=== PATIENT | male | born 1940 | race Caucasian/White ===

== ENCOUNTER 2017-04-01 08:18 | Emergency (ER) | payer MEDICARE ==
[2017-04-01 08:35] VITALS: BP 156/77
--- NOTE | 2017-04-01 08:41 | UC ---
Respiratory Complaint HPI - HPI Summary HPI Summary: 3 weeks of worsening cough, began with nasal congestion now is needing to sleep sitting up because of cough, no fevers, cardiac and asthma history ---His rescue inhaler is not working - History of Current Complaint Chief Complaint: UCRespiratory Stated Complaint: COUGH Time Seen by Provider: 04/01/17 08:33 Hx Obtained From: Patient Onset/Duration: Gradual Onset, Lasting Weeks - 3, Worse Since - -past several days Timing: Constant Severity Initially: Mild Severity Currently: Moderate Pain Intensity: 3 Pain Scale Used: 0-10 Numeric Character: Cough: Productive Aggravating Factors: Allergens, Exertion, Deep Breaths, Recumbent Position Alleviating Factors: Nothing Associated Signs And Symptoms: Positive: URI, Nasal Congestion, Sinus Discomfort - Allergies/Home Medications Allergies/Adverse Reactions: Allergies Allergy/AdvReac Type Severity Reaction Status Date / Time No Known Allergies Allergy Verified 04/01/17 08:24 PMH/Surg Hx/FS Hx/Imm Hx Previously Healthy: No Endocrine History: Dyslipidemia Cardiovascular History: Cardiac Disease, Hypertension Respiratory History: Asthma GI/ History: Gastroesophageal Reflux - Surgical History Surgical History: None - Social History Occupation: Retired Lives: With Family Alcohol Use: None Substance Use Type: None Smoking Status (MU): Former Smoker When Did the Patient Quit Smoking/Using Tobacco: 1968 Review of Systems Constitutional: Negative Skin: Negative Eyes: Negative ENT: Nasal Discharge, Sinus Congestion Respiratory: Cough Cardiovascular: Negative Gastrointestinal: Negative Genitourinary: Negative Motor: Negative Neurovascular: Negative Musculoskeletal: Negative Neurological: Negative Psychological: Negative Is Patient Immunocompromised?: No All Other Systems Reviewed And Are Negative: Yes Physical Exam Triage Information Reviewed: Yes Appearance: No Pain Distress, Well-Nourished, Ill-Appearing - mild Vital Signs: Initial Vital Signs Temp 98.6 F 04/01/17 08:26 Pulse 79 04/01/17 08:26 Resp 18 04/01/17 08:26 BP 156/77 04/01/17 08:26 Pulse Ox 98 04/01/17 08:26 Vital Signs Reviewed: Yes Eye Exam: Normal Eyes: Positive: Conjunctiva Clear ENT Exam: Normal ENT: Positive: Normal ENT inspection, Hearing grossly normal, Pharynx normal, Nasal congestion, Nasal drainage. Negative: TMs normal, Tonsillar exudate, Trismus, Muffled/hoarse voice Dental Exam: Normal Neck exam: Normal Neck: Positive: Supple, Nontender Respiratory Exam: Normal Respiratory: Positive: Chest non-tender, Lungs clear, Normal breath sounds, No respiratory distress, No accessory muscle use Cardiovascular Exam: Normal Cardiovascular: Positive: RRR, No Murmur, Pulses Normal, Brisk Capillary Refill Musculoskeletal Exam: Normal Musculoskeletal: Positive: Strength Intact, ROM Intact, No Edema Neurological Exam: Normal Neurological: Positive: Alert, Muscle Tone Normal Psychological Exam: Normal Skin Exam: Normal UC Diagnostic Evaluation - Laboratory O2 Sat by Pulse Oximetry: 98 Respiratory Course/Dx - Course Course Of Treatment: Gjama3uhs fluids, tessalon, albuterol, zithromax, follow blood pressure with pcp - Differential Dx/Diagnosis Differential Diagnosis/HQI/PQRI: Sinusitis Provider Diagnoses: Acute exacerbation of bronchospasm, Sinusitis Discharge - Discharge Plan Condition: Stable Disposition: HOME Prescriptions: Albuterol HFA INHALER* [Ventolin HFA Inhaler*] 2 puff INH Q4H PRN #1 mdi PRN Reason: cough Azithromycin TAB* [Zithromax TAB (Z-JARRET) 250 mg #6 tabs] 2 tab PO .TODAY, THEN 1 DAILY #1 jarret Benzonatate CAP* [Tessalon 100 MG CAP*] 100 mg PO TID PRN #40 cap PRN Reason: Cough Patient Education Materials: Rhinosinusitis (ED), Hypertension (ED), How to Use a Metered-Dose Inhaler and a Spacer (ED), Acute Cough (ED) Referrals: Paul Zavala MD [Primary Care Provider] - 2 Weeks
== END 2017-04-01 09:06 | disposition home or self-care (01) ==
LOC: UCCORT 08:18
DX: J98.01 Acute bronchospasm (principal); J01.90 Acute sinusitis, unspecified
CPT/HCPCS: 99212; G0463

== ENCOUNTER 2017-07-03 06:43 | Observation (INO) | payer MEDICARE ==
[2017-07-03] MEDS ORDERED: ceFAZolin VIAL 1 GM in NS *SYRINGE * * 10 ML ONE (08:00)
[2017-07-03] MEDS ORDERED: ceFAZolin 2 GM PREMIX (*) 2 GM/50 ML BAG IVPB ONE (08:00)
[2017-07-03] MEDS ORDERED: Lidocaine 1% INJ* 10 MG/ML 30 ML SDV ONE (08:39)
[2017-07-03] MEDS ORDERED: Midazolam* 1 MG/ML 10 ML VIAL (10 MG) ONE (08:39)
[2017-07-03] MEDS ORDERED: fentaNYL* 50 MCG/ML 2 ML VIAL (100 MCG VIAL) ONE (08:39)
[2017-07-03] MEDS ORDERED: Naloxone* 0.4 MG/ML 1 ML VIAL ONE (09:13)
[2017-07-03] MEDS ORDERED: Flumazenil* 0.1 MG/ML 5 ML MDV ONE (09:13)
[2017-07-03] MEDS ORDERED: Acetaminophen TAB* 325 MG PO PRN (10:08)
[2017-07-03] MEDS ORDERED: oxyCODONE/Acetamin 5/325 MG* TAB PO PRN (10:08)
[2017-07-03] MEDS: NS 0.9% 1000 ML* 1,000 ML IV SCH ×2 (13:28→23:51)
--- NOTE | 2017-07-03 15:24 | RAD ---
Indication: Status post pacemaker placement. Single frontal view of the chest performed at 1340 hours was reviewed. Comparison is made with previous exam dated October 10, 2007. No mediastinal shift is noted. Heart is of normal size and configuration. Pacemaker leads are in place. No pneumothorax is noted. IMPRESSION: NO ACTIVE CARDIOPULMONARY DISEASE IS NOTED.
[2017-07-03] MEDS: ceFAZolin 1 GM VIAL(*) 1 GM in NS 0.9% 50 ML* 50 ML IVPB SCH (17:28)
[2017-07-03] MEDS: Lisinopril TAB* 10 MG PO SCH (20:12)
[2017-07-03] MEDS: amLODIPine TAB* 5 MG PO SCH (20:12)
--- NOTE | 2017-07-04 00:13 | OP ---
CC: Dr. Longo.* DATE OF OPERATION: 04/02/18 - ROOM #446 DATE OF : 40 SURGEON: Ozzy Shepherd MD ANESTHESIA: Local anesthesia with conscious sedation. 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 OPERATIVE PROCEDURE: Dual chamber pacemaker implantation. ESTIMATED BLOOD LOSS: None. COMPLICATIONS: None. INDICATIONS: The patient is a 77-year-old gentleman with a history of tachycardia. The patient has been on beta-troy therapy for quite sometime for control of his tachycardia. Recently, the patient has had progressive bradycardia and fatigue requiring decreasing doses of beta-troy. Recently, the patient had a Holter monitor which showed heart rates down to as low as 32 beats per minute. 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 DESCRIPTION OF PROCEDURE: The patient was brought to the procedure room in a fasting state. Informed consent had been obtained prior to the procedure. All labs have been reviewed. The patient was placed supine on the procedure table. His left deltopectoral area was cleaned and draped in a usual fashion. 1% lidocaine was used for local anesthesia. Under ultrasound guidance, the axillary vein was entered by a modified Seldinger technique and a guidewire was placed. A second guidewire was placed under the same technique. A 3.5 cm incision was made in the pectoral area and blunt dissection was carried down to the pectoral fascia. A pocket was fashioned for the pacemaker. Over the first guidewire, an 8-Dominican sheath introducer was placed through which a right ventricular lead was advanced to the RV apex. The lead is a [employer] Model [id number], serial number [id number]. The ventricular lead had an R-wave sensitivity of 11, impendence 644 ohms, threshold 0.8 volts at 0.4 msec. The ventricular lead was then sutured to the pectoral fascia using 0-silk. Over the second guidewire, an 8-Dominican sheath introducer was placed through which a right atrial lead was advanced to the high right atrium. The right atrial lead is a [employer] model [id number], serial number [id number]. The atrial lead was then sutured to the pectoral fascia. The atrial lead had a P-wave sensitivity of 3.4, impedance 486 ohms, threshold 0.4 volts at 0.4 msec. The pocket was flushed appropriately. A generator was attached appropriately to the atrioventricular leads. The generator is a [employer] medical model [id number], serial number [id number]. The device was placed into the pocket. The surgical incision was closed in 3 layers. Subcutaneous tissue was closed with 2-0 and 3- 0 absorbable suture. The skin was closed with sameer. The patient was turned to the holding area in stable condition. This is an MRI conditional device. [id number]/[facility] #: [id number] [facility]
[2017-07-04] MEDS: ceFAZolin 1 GM VIAL(*) 1 GM in NS 0.9% 50 ML* 50 ML IVPB SCH ×2 (01:31→08:33)
[2017-07-04] MEDS ORDERED: Omeprazole CAP* 20 MG PO SCH (07:30)
[2017-07-04 08:12] VITALS: BP 155/69
--- NOTE | 2017-07-04 08:23 | RAD ---
INDICATION: Post cardiac pacemaker placement. COMPARISON: July 03, 2017 TECHNIQUE: Dual energy PA and routine lateral views of the chest were obtained. REPORT: Minimal linear atelectasis or pleural parenchymal scarring at the RIGHT lung base without change. The lungs and pleural spaces are otherwise clear. Negative for pneumothorax. Unchanged position of the RIGHT atrial and RIGHT ventricular pacemaker leads. Negative for cardiomegaly. Unremarkable central pulmonary vasculature and mediastinal contours. IMPRESSION: Negative for pneumothorax or pulmonary edema post cardiac pacemaker placement. No evidence for significant acute intrathoracic disease.
[2017-07-04] MEDS: Lisinopril TAB* 10 MG PO SCH (08:33)
[2017-07-04] MEDS: amLODIPine TAB* 5 MG PO SCH (08:33)
[2017-07-04] MEDS ORDERED: Diltiazem CD CAP* 120 MG PO SCH (09:00)
[2017-07-04] MEDS ORDERED: Finasteride TAB* 5 MG PO SCH (09:00)
[2017-07-04] MEDS ORDERED: Metoprolol Succinate XL TAB* 25 MG PO SCH (09:00)
[2017-07-04] MEDS ORDERED: Lisinopril TAB* 10 MG PO SCH (09:01)
[2017-07-04] MEDS ORDERED: Mometasone 220 MCG MDI INH SCH (18:00)
--- NOTE | 2017-07-04 21:05 | DS ---
CC: Dr. Shepherd; Dr. Zavala; Dr. Longo * DISCHARGE SUMMARY: DATE OF ADMISSION: 07/03/17 DATE OF DISCHARGE: 07/04/17 HOSPITAL COURSE: This is a very pleasant 77-year-old gentleman with history of hypertension, sick sinus syndrome, SVT, and MR. He has had progressive problems with tachy-selena syndrome. He was unable to tolerate even low doses of beta blockers without incurring bradycardia. Off beta blockers, he had recurrent SVT. Because of the symptoms, he was referred to Dr. Shepherd who admitted him yesterday for a pacemaker implantation. He underwent successful implantation of a [employer] pacemaker. His chest x-ray today revealed no pneumothorax. His pacemaker interrogation revealed normal function. PHYSICAL EXAMINATION: General: He is a well-developed, well-nourished gentleman, in no apparent distress. Vital Signs: Pulse is 60, blood pressure 155/69. Neck: No significant JVD. Cardiac: S1 and S2 with a 1 to 2/6 holosystolic murmur at the apex. Chest: Clear. Extremities: No edema. LABORATORY DATA: EKG from today revealed A-V sequential pacing with a magnet and a baseline revealed sinus and atrial pacing with occasional PVCs and minor nonspecific ST changes, possible old inferior infarct. IMPRESSION: Mr. Fay appears to be improved after placement of a pacemaker for tachy-selena syndrome. I discussed with him and his the precautions needed to allow his pacemaker to heal and he has questions about exposure to EMF. 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 In addition now that he has pacemaker, we can advance his beta-troy and add diltiazem to better control his supraventricular tachycardia and blood pressure. Therefore, I have recommended following; 1. He is to be discharged today. 2. He will be given pacemaker care instructions. MEDICATIONS: His new medication list will be as follows; 1. Diltiazem CD 120 mg once a day. 2. Lisinopril reduce to 10 mg a day. 3. Flovent inhaler 2 puffs daily. 4. Omeprazole 20 mg a day. 5. Metoprolol succinate 25 mg once a day. 6. He is to discontinue amlodipine and reduce his lisinopril to 10 mg a day from 20 mg a day. TIME SPENT: Greater than 45 plus minutes were spent on discharge and coordination of care. [id number]/[facility] #: [id number] NATHAN
[2017-07-05] MEDS ORDERED: Metoprolol Succinate XL TAB* 25 MG PO SCH (09:00)
== END 2017-07-04 12:00 | disposition home or self-care (01) ==
LOC: CHICATH 06:43 → MEDTELE 10:08 → UNDOADMOB 10:59
PROVIDERS: ADMIT Specialist; ATTEND Specialist
PROC: 02H63JZ Insertion of Pacemaker Lead into Right Atrium, Percutaneous Approach (ICD-10-PCS; 2017-07-03)
PROC: 02HK3JZ Insertion of Pacemaker Lead into Right Ventricle, Percutaneous Approach (ICD-10-PCS; 2017-07-03)
PROC: 0JH606Z Insertion of Pacemaker, Dual Chamber into Chest Subcutaneous Tissue and Fascia, Open Approach (ICD-10-PCS; principal; 2017-07-03 08:00)
DX: I49.5 Sick sinus syndrome (principal); Z86.79 Personal history of other diseases of the circulatory system; Z79.899 Other long term (current) drug therapy
CPT/HCPCS: 71045; 71046; 93005; A9270-GY; G0378; J0690; J2250; J2310; J3010

== ENCOUNTER 2017-09-02 14:12 | Emergency (ER) | payer MEDICARE ==
[2017-09-02 14:40] VITALS: BP 145/71
[2017-09-02] MEDS ORDERED: Tetracaine 0.5% OPTH.SOL 4 ML* 1 DROP BTL LEFT EYE ONE (15:09)
--- NOTE | 2017-09-02 15:17 | UC ---
Eye Complaint HPI - HPI Summary HPI Summary: Pt c/o possible FB i left eye. Pt was stacking wood and wind blew dust and debris in eyes. - History of Current Complaint Chief Complaint: UCEye Stated Complaint: LEFT EYE FB Time Seen by Provider: 09/02/17 15:02 Hx Obtained From: Patient Onset/Duration: Sudden Onset, Lasting Hours Timing: Constant Severity Initially: Mild Severity Currently: Mild Pain Intensity: 2 Character: Foreign Body Sensation Aggravating Factor(s): Blinking Alleviating Factor(s): Nothing - Risk Factors Penetrating Injury Risk Factor: Negative Globe Rupture Risk Factors: Negative Acute Glaucoma Risk Factors: Negative Optic Artery Occlusion Risk Factors: Negative - Allergies/Home Medications Allergies/Adverse Reactions: Allergies Allergy/AdvReac Type Severity Reaction Status Date / Time atorvastatin Allergy Unknown Verified 09/02/17 15:19 Reaction Details PMH/Surg Hx/FS Hx/Imm Hx Previously Healthy: Yes - Surgical History Surgical History: Yes Surgery Procedure, Year, and Place: 2017 - Family History Known Family History: Positive: Cardiac Disease - Social History Occupation: Retired Lives: With Family Alcohol Use: None Substance Use Type: None Smoking Status (MU): Former Smoker Have You Smoked in the Last Year: No When Did the Patient Quit Smoking/Using Tobacco: 1968 Review of Systems Constitutional: Negative Skin: Negative Eyes: Other - FB ENT: Negative Respiratory: Negative Cardiovascular: Negative Gastrointestinal: Negative Genitourinary: Negative Motor: Negative Neurovascular: Negative Musculoskeletal: Negative Neurological: Negative Psychological: Negative Is Patient Immunocompromised?: No All Other Systems Reviewed And Are Negative: Yes Physical Exam Triage Information Reviewed: Yes Appearance: Well-Appearing Vital Signs: Initial Vital Signs Temp 97.7 F 09/02/17 14:35 Pulse 97 09/02/17 14:35 Resp 18 09/02/17 14:35 BP 145/71 09/02/17 14:35 Pulse Ox 98 09/02/17 14:35 Vital Signs Reviewed: Yes Eyes: Positive: Other: - FB left eye at 3 o'clock position, removed Procedures - Procedure Summary Procedure Summary: left eye FB removed with swab, tetracaine eye drop applied first, FB removed and then left eye flushed with 10 cc of NS Eye Complaint Course/Dx - Differential Dx/Diagnosis Differential Diagnosis/HQI/PQRI: Foreign Body Provider Diagnoses: left eye FB. FB removed Left eye Discharge - Discharge Plan Condition: Stable Disposition: HOME Prescriptions: Polymyx/Trimethoprim OPTH* [Polytrim OPHTH*] 2 drop LEFT EYE Q8H #1 btl Patient Education Materials: Eye Foreign Body (ED) Referrals: Paul Zavala MD [Primary Care Provider] -
== END 2017-09-02 15:24 | disposition home or self-care (01) ==
LOC: UCCORT 14:12
DX: T15.92XA Foreign body on external eye, part unspecified, left eye, initial encounter (principal); X58.XXXA Exposure to other specified factors, initial encounter; Y93.9 Activity, unspecified; Y92.9 Unspecified place or not applicable; Z88.8 Allergy status to other drugs, medicaments and biological substances; Z87.891 Personal history of nicotine dependence
CPT/HCPCS: 99212; A9270-GY; G0463

== ENCOUNTER 2018-05-04 09:15 | Emergency (ER) | payer MEDICARE ==
--- OUTSIDE RECORDS SUMMARY | 2018-05-04 09:45 | XMS REPORT ---
:1940 External Reference #:[id number] Author Organization [facility] Address [address] [place] [address] [place] [address] Phone [phone] Care Team Providers Name Role Phone Paul Zavala MD Primary Care Physician Unavailable Payers Type Date Identification Numbers Payment Provider Subscriber Medicare Primary Effective: Policy Number: Medicare Kj Fay 2006 [id number] PayID: [id number] [address] [place] [address] [facility] Part B Policy Number: [id number] [facility] Kj Fay PayID: [id number] [address] [place] [address] Problems Date Description Provider Status Onset: 09/07/2011 Benign essential hypertension Chi Longo M.D. 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 Active Onset: 09/07/2011 Mitral valve disorder Chi Longo M.D. Active Onset: 03/12/2013 Obesity Chi Longo M.D. Active Onset: 05/04/2015 Essential hypertension Chi Longo M.D. Active Family History Date Family Member(s) Problem(s) Comments : (age 88 Mother due to Diabetes iddm, htn, stroke Years) Social History Type Date Description Comments Marital Status Lives With Occupation [employer] Occupation Retired Cigarette Use Former Cigarette Smoker ETOH Use Denies alcohol use Smoking Patient is a former smoker Quit in 1968 Recreational Drug Use Never Used Drugs Daily Caffeine Consumes on average 2 cups of regular coffee per day Exercise Type/Frequency Exercises sporadically Allergies, Adverse Reactions, Alerts Date Description Reaction Status Severity Comments 10/26/2009 Lipitor active Myalgias 10/09/2003 NKDA inactive Medications Medication Date Status Form Strength Qnty SIG Indications Ordering Provider Lisinopril 03/21/ Active Tablets 20mg 30tab 1 by mouth Chi [place] s every day Yanira Longo M.D. Diltiazem CD 07/04/ Active Caps ER 120mg 270ca 2 by mouth Chi 2017 24HR ps in the Kapil Longo, morning and M.D. 1 by mouth in the evening. Pravachol 12/19/ Active Tablets 20mg 90tab 1 tablet by Chi 2015 s mouth every Yanira Longo, day M.D. Finasteride / Active Tablets 5mg 90tab qd po Unknown 0000 s Flovent HFA / Active Aerosol 110mcg/Ac 2 puffs po Unknown 0000 t qday Omeprazole / Active Capsules 20mg 30cap 1 po qd Unknown [address] patricio Acetaminophen 07/10/ Hx Tablets 325mg 2 tablets by Chi 2017 - mouth every Yanira Longo, 08/30/ 6 hours as M.D. 2018 needed for pain/fever Keflex 07/04/ Hx Capsules 500mg 9caps 1 by mouth Ozzy Marlow 2018 - three times Brand, 07/09/ a day for 3 M.D. 2017 days Lisinopril 11/02/ Hx Tablets 10mg 180ta take one Chi 2015 tablet by Yanira Longo, 03/21/ mouth once M.D. 2017 daily (changed 07/04/17) Coq-10 09/29/ Hx Capsules 100mg 60cap 2 tablet Chi 2015 daily Yanira Longo, 12/05/ M.D. 2015 Amlodipine 08/17/ Hx Tablets 2.5mg 180ta 2 tabs in am I10 Chi Besmagdi 2015 and 1 tab in Yanira Longo, 08/06/ pm (adjusted M.D. 2018 to 1 tablet am at discharge). Metoprolol 08/17/ Hx Tablets 25mg 90tab 1/2 tab by Chi Succinate ER 2015 - ER 24HR s mouth odd F. Margotuser, 04/08/ until M.D. [id number] and then discontinue Metoprolol 06/24/ Hx Tablets 25mg 180ta take one Chi Succinate ER 2014 - ER 24HR bs tablet bid F. Sonidor, 08/17/ M.D. 2016 Lisinopril 05/27/ Hx Tablets 5mg 180ta 1 tab by Chi 2014 - bs mouth twice Pino. Qing, 11/02/ a day M.D. 2015 Lisinopril 12/10/ Hx Tablets 5mg 90tab 1 by mouth Chi 2013 - s every day Pino. Sonidor, 05/27/ M.D. 2014 Pravachol 06/28/ Hx Tablets 10mg 45tab 2 tablet by Chi 2012 - s mouth every F. Margotuser, 12/19/ day M.D. 2015 (increased 12/20/15) Simvastatin 05/03/ Hx Tablets 10mg 100ta 1/2 po qhs Chi 2011 - bs On Hold x1 Yanira Longo, 06/28/ M.D. 2013 Crestor 10/02/ Hx Tablets 10mg 30tab 1 pill by Joanna 2011 - s mouth daily Lalo, 10/02/ D.O. 2011 Lisinopril 09/06/ Hx Tablets 10mg 100ta 1 by mouth Chi 2011 - every day Yanira Longo, 12/10/ M.D. 2014 Zocor 10/26/ Hx Tablets 10mg 90tab 1 po hs hold Chi 2009 - s as of Yanira Longo, .3.12 M.D. 2011 Metoprolol 01/14/ Hx Tablets 25mg 30tab 1/2 po qd Chi Tartrate 2008 - s for 1 week Yanira Longo, 03/15/ and then 06/26 M.D. 2008 qod for 1 week and then discontinue. Lopressor 11/13/ Hx Tablets 25mg 30tab 1 po qd Chi 2008 - s Yanira Longo, 01/14/ M.D. 2009 Crestor 05/18/ Hx Tablets 5mg 1 PO qod Chi 2008 - F. Margotuser, M.D. 2010 Crestor 02/19/ Hx Tablets 5mg 1 PO sundaynathan 2008 - and F. Margotuser, M.D. 2007 Niaspan 09/25/ Hx Tablets 500mg 30tab 1Tab PM Chi 2008 - ER s F. Margotuser, M.D. 2007 Aspirin 09/25/ Hx Tablets 325mg 1 PO qd Chi 2007 - F. Mauser, M.D. 2007 Lipitor 08/05/ Hx Tablets 20mg 1 PO hs Chi 2007 - FKapil Longo, M.D. 2007 Atenolol 07/25/ Hx Tablets 25mg 30tab one half PO Chi 2007 - s qd F. Mauser, M.D. 2008 Cardizem CD 07/12/ Hx Caps ER 120mg 100ca 1 by mouth Chi 2007 - 24HR ps every day F. Margotuser, M.D. 2014 Lipitor 05/27/ Hx Tablets 10mg 90tab 1 Tab PO hs Chi 2006 - s F. Margotuser, M.D. 2008 Norvasc 07/27/ Hx Tablets 10mg 90tab 1 po qd Chi 2006 - s F. Margotuser, 11/18/ M.D. 2009 Lipitor 07/13/ Hx Tablets 20mg 30tab 1 po qd Chi 2005 - s F. Mauser, M.D. 2007 Atenolol 10/22/ Hx Tablets 25mg 30tab 1/2 po Chi 2003 - s 07/14/07 F. Mauser, 07/16, and M.D. 07/18 and then discontinue. Norvasc 10/07/ Hx Tablets 7.5mg 30tab 1 po qd Chi 2003 - s F. Mauser, 07/27/ M.D. 2007 Flovent 10/07/ Hx Aerosol 1 puff qd Chi 2003 - F. Qing, M.D. 2010 Albuterol 10/07/ Hx Aerosol prn Chi 2004 - Yanira Longo, 10/26/ M.DKapil 2009 Crestor / Hx Tablets 20mg 1 po qd Unknown - 2009 Amlodipine / Hx 10mg 90uni 1 po qd Chi - ts Yanira Longo, 09/06/ M.D. 2011 Albuterol Mdi / Hx 2 puffs po Unknown - q4hrs prn 2012 Toprol XL / Hx 25mg Unknown - 2015 Coq-10 / Hx 200mg 1 tablet Chi - daily Yanira Longo, 09/29/ M.D. 2015 Proair HFA / Hx Aerosol 108(90Bas Unknown 0000 - e) 05/21/ mcg/Act 2016 Medications Administered in Office Medication Date Status Form Strength Qnty SIG Indications Ordering Provider Technetium TC Administered Injection Yair Ching 99M 016 Evan, Tetrofosmin, FACC Per Unit Dose Up To 40 Millicuries Technetium TC Administered Injection Suki Wilson, 99M 016 PA Tetrofosmin, Per Unit Dose Up To 40 Millicuries Vital Signs Date Vital Result Comment 04/09/2018 Height 68 inches 5'8" Weight 203.00 lb Heart Rate 68 /min BP Systolic Sitting 132 mmHg lue lg cuff BP Diastolic Sitting 62 mmHg lue lg cuff BP Systolic Standing 130 mmHg BP Diastolic Standing 70 mmHg Respiratory Rate 18 /min BMI (Body Mass Index) 30.9 kg/m2 Ejection Fraction 60-65% 03/20/2018 echo 02/26/2018 Height 68 inches 5'8" Weight 202.50 lb w/shoes Heart Rate 66 /min BP Systolic Sitting 158 mmHg Lue reg cuff BP Diastolic Sitting 82 mmHg Lue reg cuff BMI (Body Mass Index) 30.8 kg/m2 Ejection Fraction 53% Nem 07/23/17 12/31/2017 Height 68 inches 5'8" Weight 203.38 lb w/shoes Heart Rate 74 /min BP Systolic Sitting 164 mmHg lue reg cuff BP Diastolic Sitting 82 mmHg lue reg cuff BP Systolic Standing 148 mmHg la repeat sitting BP Diastolic Standing 62 mmHg la repeat sitting BMI (Body Mass Index) 30.9 kg/m2 Ejection Fraction 60-65% echo 06/01/2015 08/30/2017 Height 68 inches 5'8" Weight 201.75 lb Heart Rate 60 /min BP Systolic Sitting 164 mmHg LA, Reg BP Diastolic Sitting 84 mmHg LA, Reg BP Systolic Standing 164 mmHg LA, reg BP Diastolic Standing 82 mmHg LA, reg BMI (Body Mass Index) 30.7 kg/m2 Ejection Fraction 60%-65% 06/01/15 08/06/2017 Height 68 inches 5'8" Weight 200.25 lb with shoes Heart Rate 56 /min BP Systolic 160 mmHg L/Arm Reg Cuff BP Diastolic 80 mmHg L/Arm Reg Cuff BMI (Body Mass Index) 30.4 kg/m2 Ejection Fraction 60-65-% Echocardiogram 06/01/2015 07/10/2017 Height 68 inches 5'8" Weight 196.00 lb w/ shoes Heart Rate 60 /min BP Systolic Sitting 170 mmHg rue reg cuff BP Diastolic Sitting 70 mmHg rue reg cuff Respiratory Rate 18 /min BMI (Body Mass Index) 29.8 kg/m2 Ejection Fraction 60-65% echo 06/01/15 06/15/2017 Weight 182.00 lb with shoes Heart Rate 70 /min BP Systolic Sitting 120 mmHg Lue reg cuff BP Diastolic Sitting 70 mmHg Lue reg cuff BP Systolic Standing 112 mmHg Lue reg cuff BP Diastolic Standing 70 mmHg Lue reg cuff Respiratory Rate 17 /min Ejection Fraction 60-65% date 06/01/2015 06/07/2017 Height 68 inches 5'8" Weight 195.31 lb with shoes Heart Rate 48 /min irreg BP Systolic Sitting 130 mmHg Lue reg cuff BP Diastolic Sitting 80 mmHg Lue reg cuff BP Systolic Standing 154 mmHg Lue reg cuff BP Diastolic Standing 80 mmHg Lue reg cuff Respiratory Rate 15 /min BMI (Body Mass Index) 29.7 kg/m2 05/22/2017 Height 68 inches 5'8" Weight 201.00 lb w/shoes Heart Rate 56 /min BP Systolic Sitting 144 mmHg BP Diastolic Sitting 76 mmHg BMI (Body Mass Index) 30.6 kg/m2 Ejection Fraction 60-65% Echo 06/01/15 04/27/2016 Height 68 inches 5'8" Weight 184.00 lb w/ shoes Heart Rate 68 /min BP Systolic Sitting 136 mmHg Rue, reg cuff BP Diastolic Sitting 86 mmHg Rue, reg cuff BP Systolic Standing 130 mmHg Rue BP Diastolic Standing 80 mmHg Rue Respiratory Rate 16 /min BMI (Body Mass Index) 28.0 kg/m2 Ejection Fraction 65-60% as of 06/01/15 echo 12/06/2015 Height 68 inches 5'8" Heart Rate 54 /min BP Systolic Sitting 184 mmHg Ra reg cuff BP Diastolic Sitting 90 mmHg Ra reg cuff Ejection Fraction 55% Nem 07/23/15 11/03/2015 Height 68 inches 5'8" Weight 187.75 lb with shoes Heart Rate 60 /min BP Systolic 160 mmHg LA reg cuff BP Diastolic 76 mmHg LA reg cuff BMI (Body Mass Index) 28.5 kg/m2 Ejection Fraction 55% 07/23/15 stress test 09/03/2015 Height 68 inches 5'8" Weight 185.50 lb with shoes Heart Rate 52 /min BP Systolic Sitting 138 mmHg LA, regular BP Diastolic Sitting 72 mmHg LA, regular BMI (Body Mass Index) 28.2 kg/m2 Ejection Fraction 60-65% echo 06/01/15 08/17/2015 Height 68 inches 5'8" Weight 191.75 lb with shoes Heart Rate 50 /min BP Systolic 190 mmHg LA reg cuff BP Diastolic 83 mmHg LA reg cuff Respiratory Rate 16 /min BMI (Body Mass Index) 29.2 kg/m2 Ejection Fraction 60-65% 08/02/14 06/28/2015 Height 68 inches 5'8" Weight 192.31 lb with shoes Heart Rate 66 /min BP Systolic Sitting 144 mmHg LA reg cuff BP Diastolic Sitting 98 mmHg LA reg cuff BP Systolic Standing 140 mmHg LA BP Diastolic Standing 102 mmHg LA Respiratory Rate 16 /min BMI (Body Mass Index) 29.2 kg/m2 Ejection Fraction 60-65% 05/04/2015 Height 68 inches 5'8" Weight 188.00 lb with shoes Heart Rate 60 /min BP Systolic Sitting 158 mmHg LA reg cuff BP Diastolic Sitting 80 mmHg LA reg cuff Respiratory Rate 16 /min BMI (Body Mass Index) 28.6 kg/m2 Ejection Fraction 50-55% date 08/06/14 ECHO 08/03/2014 Height 68 inches 5'8" Weight 179.75 lb Heart Rate 68 /min BP Systolic Sitting 178 mmHg LA, reg BP Diastolic Sitting 74 mmHg LA, reg BMI (Body Mass Index) 27.3 kg/m2 12/10/2013 Height 68 inches 5'8" Weight 161.00 lb Heart Rate 56 /min BP Systolic Sitting 130 mmHg BP Diastolic Sitting 76 mmHg Respiratory Rate 16 /min BMI (Body Mass Index) 24.5 kg/m2 03/12/2013 Height 68 inches 5'8" Weight 197.00 lb Heart Rate 58 /min BP Systolic 160 mmHg BP Diastolic 84 mmHg Respiratory Rate 18 /min BMI (Body Mass Index) 30.0 kg/m2 08/08/2012 Height 68 inches 5'8" Weight 194.00 lb Heart Rate 78 /min BP Systolic 144 mmHg BP Diastolic 78 mmHg BMI (Body Mass Index) 29.5 kg/m2 03/27/2012 Height 68 inches 5'8" Weight 192.00 lb Heart Rate 66 /min BP Systolic 128 mmHg BP Diastolic 90 mmHg BMI (Body Mass Index) 29.2 kg/m2 10/03/2011 Height 68 inches 5'8" Weight 189.75 lb Heart Rate 88 /min BP Systolic Sitting 132 mmHg BP Diastolic Sitting 72 mmHg BMI (Body Mass Index) 28.8 kg/m2 09/27/2011 Heart Rate 60 /min BP Systolic Sitting 132 mmHg BP Diastolic Sitting 82 mmHg 09/07/2011 Height 68 inches 5'8" Weight 189.00 lb Heart Rate 65 /min BP Systolic Sitting 144 mmHg L BP Diastolic Sitting 80 mmHg L BMI (Body Mass Index) 28.7 kg/m2 06/29/2010 Weight 187.00 lb Heart Rate 64 /min BP Systolic Sitting 150 mmHg BP Diastolic Sitting 78 mmHg 11/18/2009 Weight 178.00 lb Heart Rate 64 /min BP Systolic 124 mmHg BP Diastolic 76 mmHg 10/26/2009 Height 67 inches 5'7" Weight 177.00 lb Heart Rate 62 /min BP Systolic 142 mmHg BP Diastolic 72 mmHg BP Systolic Sitting 140 mmHg BP Diastolic Sitting 70 mmHg BMI (Body Mass Index) 27.7 kg/m2 01/14/2009 Height 67 inches 5'7" Weight 173.00 lb Heart Rate 50 /min BP Systolic Sitting 140 mmHg BP Diastolic Sitting 70 mmHg Respiratory Rate 16 /min BMI (Body Mass Index) 27.1 kg/m2 05/13/2008 Height 68 inches 5'8" Weight 220.00 lb Heart Rate 58 /min BP Systolic Sitting 164 mmHg L BP Diastolic Sitting 80 mmHg L BMI (Body Mass Index) 33.4 kg/m2 09/26/2007 Height 68 inches 5'8" Weight 215.00 lb Heart Rate 55 /min BP Systolic Sitting 130 mmHg BP Diastolic Sitting 74 mmHg Respiratory Rate 16 /min BMI (Body Mass Index) 32.7 kg/m2 07/12/2007 Height 68 inches 5'8" Weight 215.00 lb Heart Rate 60 /min BP Systolic Sitting 150 mmHg L BP Diastolic Sitting 72 mmHg L BP Systolic Standing 140 mmHg L BP Diastolic Standing 70 mmHg L BMI (Body Mass Index) 32.7 kg/m2 04/18/2007 Height 68 inches 5'8" Weight 202.00 lb Heart Rate 54 /min BP Systolic Sitting 150 mmHg L BP Diastolic Sitting 80 mmHg L BP Systolic Standing 160 mmHg L BP Diastolic Standing 90 mmHg L BMI (Body Mass Index) 30.7 kg/m2 10/12/2006 Height 68 inches 5'8" Weight 207.00 lb Heart Rate 52 /min BP Systolic Sitting 154 mmHg L BP Diastolic Sitting 80 mmHg L BP Systolic Standing 154 mmHg L BP Diastolic Standing 82 mmHg L BMI (Body Mass Index) 31.5 kg/m2 08/30/2006 Height 68 inches 5'8" Weight 203.00 lb Heart Rate 76 /min BP Systolic Sitting 160 mmHg L BP Diastolic Sitting 80 mmHg L BMI (Body Mass Index) 30.9 kg/m2 07/27/2006 Height 68 inches 5'8" Weight 203.00 lb Heart Rate 54 /min BP Systolic Sitting 144 mmHg BP Diastolic Sitting 80 mmHg BP Systolic Standing 140 mmHg BP Diastolic Standing 80 mmHg BMI (Body Mass Index) 30.9 kg/m2 07/14/2005 Height 68 inches 5'8" Weight 204.00 lb Heart Rate 60 /min BP Systolic Sitting 180 mmHg R BP Diastolic Sitting 90 mmHg R BP Systolic Standing 160 mmHg R BP Diastolic Standing 80 mmHg R BMI (Body Mass Index) 31.0 kg/m2 10/09/2003 Height 68 inches Weight 177.00 lb Heart Rate 61 /min BP Systolic Sitting 150 mmHg BP Diastolic Sitting 82 mmHg BP Systolic Standing 142 mmHg BP Diastolic Standing 90 mmHg O2 % BldC Oximetry 98 % BMI (Body Mass Index) 26.9 kg/m2 Results Test Date Test Result H/L Range Note CBC Auto Diff 06/27/2017 White Blood Count 6.2 10^3/uL 3.5-10.8 Red Blood Count 5.07 10^6/uL 4.0-5.4 Hemoglobin 15.5 g/dL 14.0-18.0 Hematocrit 46 % 42-52 Mean Corpuscular Volume 91 fL 80-94 Mean Corpuscular Hemoglobin 31 pg 27-31 Mean Corpuscular HGB Conc 34 g/dL 31-36 Red Cell Distribution Width 14 % 10.5-15 Platelet Count 345 10^3/uL 150-450 Mean Platelet Volume 8 um3 7.4-10.4 Abs Neutrophils 3.2 10^3/uL 1.5-7.7 Abs Lymphocytes 2.1 10^3/uL 1.0-4.8 Abs Monocytes 0.6 10^3/uL 0-0.8 Abs Eosinophils 0.2 10^3/uL 0-0.6 Abs Basophils 0.1 10^3/uL 0-0.2 Abs Nucleated RBC 0.01 10^3/uL Granulocyte % 51.9 % 38-83 Lymphocyte % 33.5 % 25-47 Monocyte % 9.9 % High 1-9 Eosinophil % 3.5 % 0-6 Basophil % 1.2 % 0-2 Nucleated Red Blood Cells % 0.1 Inr/Protime 06/27/2017 Inr 0.87 0.77-1.02 Laboratory test finding 06/27/2017 Partial Thrombo Time 32.4 seconds 26.0 -36.3 PTT Basic Metabolic Panel 06/27/2017 Sodium 138 mmol/L 133-145 Potassium 4.5 mmol/L 3.5-5.0 Chloride 104 mmol/L 101-111 Co2 Carbon Dioxide 28 mmol/L 22-32 Anion Gap 6 mmol/L 2-11 Glucose 99 mg/dL 70-100 Blood Urea Nitrogen 16 mg/dL 6-24 Creatinine 0.99 mg/dL 0.67-1.17 BUN/Creatinine Ratio 16.2 8-20 Calcium 9.6 mg/dL 8.6-10.3 Egfr Non- 73.3 >60 Egfr 94.3 >60 1 Pre Cath Panel 06/15/2017 Partial Thrombo Time PTT <pending> Lipid Panel - [facility] 05/22/2017 Creatine Kinase(CK) 74 U/L 10-223 Comp Metabolic Panel 05/22/2017 Sodium 138 mmol/L 133-145 Potassium 5.0 mmol/L 3.5-5.0 Chloride 104 mmol/L 101-111 Co2 Carbon Dioxide 27 mmol/L 22-32 Anion Gap 7 mmol/L 2-11 Glucose 97 mg/dL 70-100 Blood Urea Nitrogen 21 mg/dL 6-24 Creatinine 1.10 mg/dL 0.67-1.17 BUN/Creatinine Ratio 19.1 8-20 Calcium 9.6 mg/dL 8.6-10.3 Total Protein 6.8 g/dL 6.4-8.9 Albumin 4.2 g/dL 3.2-5.2 Globulin 2.6 g/dL 2-4 Albumin/Globulin Ratio 1.6 1-3 Total Bilirubin 0.70 mg/dL 0.2-1.0 Alkaline Phosphatase 67 U/L 34-104 Alt 21 U/L 7-52 Ast 21 U/L 13-39 Egfr Non- 64.9 >60 Egfr 83.5 >60 2 Lipid Profile (Trig/Chol/HDL) 05/22/2017 Triglycerides 182 mg/dL 3 Cholesterol 208 mg/dL 4 HDL Cholesterol 40.1 mg/dL 5 LDL Cholesterol 132 mg/dL 6 CBC Auto Diff 05/22/2017 White Blood Count 6.0 10^3/uL 3.5-10.8 Red Blood Count 4.89 10^6/uL 4.0-5.4 Hemoglobin 15.0 g/dL 14.0-18.0 Hematocrit 45 % 42-52 Mean Corpuscular Volume 91 fL 80-94 Mean Corpuscular Hemoglobin 31 pg 27-31 Mean Corpuscular HGB Conc 34 g/dL 31-36 Red Cell Distribution Width 14 % 10.5-15 Platelet Count 297 10^3/uL 150-450 Mean Platelet Volume 8 um3 7.4-10.4 Abs Neutrophils 3.3 10^3/uL 1.5-7.7 Abs Lymphocytes 1.7 10^3/uL 1.0-4.8 Abs Monocytes 0.7 10^3/uL 0-0.8 Abs Eosinophils 0.2 10^3/uL 0-0.6 Abs Basophils 0.1 10^3/uL 0-0.2 Abs Nucleated RBC 0.01 10^3/uL Granulocyte % 56.0 % 38-83 Lymphocyte % 27.8 % 25-47 Monocyte % 10.9 % High 1-9 Eosinophil % 3.9 % 0-6 Basophil % 1.4 % 0-2 Nucleated Red Blood Cells % 0.1 Laboratory test finding 05/22/2017 TSH (Thyroid Stim Horm) 3.20 mcIU/mL 0.34-5.60 Magnesium 2.5 mg/dL 1.9-2.7 Lipid Panel - [facility] 04/28/2016 Creatine Kinase(CK) 107 U/L 10-223 Comp Metabolic Panel 04/28/2016 Sodium 138 mmol/L 133-145 Potassium 4.6 mmol/L 3.5-5.0 Chloride 106 mmol/L 101-111 Co2 Carbon Dioxide 28 mmol/L 22-32 Anion Gap 4 mmol/L 2-11 Glucose 107 mg/dL High 70-100 Blood Urea Nitrogen 16 mg/dL 6-24 Creatinine 1.10 mg/dL 0.67-1.17 BUN/Creatinine Ratio 14.5 8-20 Calcium 8.8 mg/dL 8.6-10.3 Total Protein 6.2 g/dL Low 6.4-8.9 Albumin 3.8 g/dL 3.2-5.2 Globulin 2.4 g/dL 2-4 Albumin/Globulin Ratio 1.6 1-3 Total Bilirubin 0.50 mg/dL 0.2-1.0 Alkaline Phosphatase 49 U/L 34-104 Alt 20 U/L 7-52 Ast 23 U/L 13-39 Egfr Non- 65.1 >60 Egfr 83.7 >60 7 Lipid Profile (Trig/Chol/HDL) 04/28/2016 Triglycerides 121 mg/dL 8 Cholesterol 167 mg/dL 9 HDL Cholesterol 39.3 mg/dL 10 LDL Cholesterol 104 mg/dL 11 Laboratory test finding 04/28/2016 Magnesium 2.4 mg/dL 1.9-2.7 CBC Auto Diff 04/28/2016 White Blood Count 5.3 10^3/uL 3.5-10.8 Red Blood Count 4.64 10^6/uL 4.0-5.4 Hemoglobin 14.2 g/dL 14.0-18.0 Hematocrit 42 % 42-52 Mean Corpuscular Volume 91 fL 80-94 Mean Corpuscular Hemoglobin 31 pg 27-31 Mean Corpuscular HGB Conc 34 g/dL 31-36 Red Cell Distribution Width 13 % 10.5-15 Platelet Count 267 10^3/uL 150-450 Mean Platelet Volume 7 um3 Low 7.4-10.4 Abs Neutrophils 2.9 10^3/uL 1.5-7.7 Abs Lymphocytes 1.5 10^3/uL 1.0-4.8 Abs Monocytes 0.6 10^3/uL 0-0.8 Abs Eosinophils 0.2 10^3/uL 0-0.6 Abs Basophils 0 10^3/uL 0-0.2 Abs Nucleated RBC 0.01 10^3/uL Granulocyte % 55.5 % 38-83 Lymphocyte % 28.8 % 25-47 Monocyte % 10.6 % High 1-9 Eosinophil % 4.5 % 0-6 Basophil % 0.6 % 0-2 Nucleated Red Blood Cells % 0.2 Laboratory test finding 04/28/2016 TSH (Thyroid Stim Horm) 2.59 mcIU/mL 0.34-5.60 Lipid Panel - [facility] 12/16/2015 Creatine Kinase(CK) 71 U/L 10-223 Comp Metabolic Panel 12/16/2015 Sodium 137 mmol/L 133-145 Potassium 4.8 mmol/L 3.5-5.0 Chloride 104 mmol/L 101-111 Co2 Carbon Dioxide 28 mmol/L 22-32 Anion Gap 5 mmol/L 2-11 Glucose 92 mg/dL 70-100 Blood Urea Nitrogen 16 mg/dL 6-24 Creatinine 1.05 mg/dL 0.67-1.17 BUN/Creatinine Ratio 15.2 8-20 Calcium 9.2 mg/dL 8.6-10.3 Total Protein 6.3 g/dL Low 6.4-8.9 Albumin 4.0 g/dL 3.2-5.2 Globulin 2.3 g/dL 2-4 Albumin/Globulin Ratio 1.7 1-3 Total Bilirubin 0.60 mg/dL 0.2-1.0 Alkaline Phosphatase 60 U/L 34-104 Alt 16 U/L 7-52 Ast 17 U/L 13-39 Egfr Non- 68.9 >60 Egfr 88.6 >60 12 Lipid Profile (Trig/Chol/HDL) 12/16/2015 Triglycerides 184 mg/dL 13 Cholesterol 176 mg/dL 14 HDL Cholesterol 33.6 mg/dL 15 LDL Cholesterol 106 mg/dL 16 Laboratory test finding 06/28/2015 B-Type Natriuretic 35 pg/mL 17 Peptide BNP CBC W/Auto Diff 06/28/2015 White Blood Count 5.5 10^3/uL 3.5-10.8 Red Blood Count 5.05 10^6/uL 4.0-5.4 Hemoglobin 15.8 g/dL 14.0-18.0 Hematocrit 47 % 42-52 Mean Corpuscular Volume 93 fL 80-94 Mean Corpuscular Hemoglobin 31 pg 27-31 Mean Corpuscular HGB Conc 34 g/dL 31-36 Red Cell Distribution Width 13 % 10.5-15 Platelet Count 293 10^3/uL 150-450 Mean Platelet Volume 7 um3 Low 7.4-10.4 Abs Neutrophils 3.3 10^3/uL 1.5-7.7 Abs Lymphocytes 1.5 10^3/uL 1.0-4.8 Abs Monocytes 0.6 10^3/uL 0-0.8 Abs Eosinophils 0.1 10^3/uL 0-0.6 Abs Basophils 0.1 10^3/uL 0-0.2 Abs Nucleated RBC 0.01 10^3/uL Granulocyte % 59.6 % 38-83 Lymphocyte % 26.7 % 25-47 Monocyte % 10.7 % High 1-9 Eosinophil % 1.9 % 0-6 Basophil % 1.1 % 0-2 Nucleated Red Blood Cells % 0.1 Laboratory test finding 06/28/2015 Magnesium 2.3 mg/dL 1.9-2.7 Lipid Panel 06/28/2015 Triglycerides 240 mg/dL 18 Cholesterol 240 mg/dL 19 HDL Cholesterol 36.9 mg/dL 20 LDL Cholesterol 155 mg/dL 21 CMP Panel 06/28/2015 Sodium 137 mmol/L 133-145 Potassium 4.9 mmol/L 3.5-5.0 Chloride 102 mmol/L 101-111 Co2 Carbon Dioxide 31 mmol/L 22-32 Anion Gap 4 mmol/L 2-11 Glucose 95 mg/dL 70-100 Blood Urea Nitrogen 19 mg/dL 6-24 Creatinine 1.04 mg/dL 0.67-1.17 BUN/Creatinine Ratio 18.3 8-20 Calcium 9.3 mg/dL 8.6-10.3 Total Protein 6.6 g/dL 6.4-8.9 Albumin 4.3 g/dL 3.2-5.2 Globulin 2.3 g/dL 2-4 Albumin/Globulin Ratio 1.9 1-3 Total Bilirubin 0.60 mg/dL 0.2-1.0 Alkaline Phosphatase 63 U/L 34-104 Alt 22 U/L 7-52 Ast 18 U/L 13-39 Egfr Non- 69.6 >60 Egfr 89.5 >60 22 Lipid Panel - [facility] 06/28/2015 Creatine Kinase(CK) 74 U/L 10-223 CBC W/Auto Diff 12/18/2014 White Blood Count 4.6 10^3/uL Low 4.8-10.8 Red Blood Count 4.72 10^6/uL 4.0-5.4 Hemoglobin 14.9 g/dL 14.0-18.0 Hematocrit 44 % 42-52 Mean Corpuscular Volume 93 fL 80-94 Mean Corpuscular Hemoglobin 32 pg High 27-31 Mean Corpuscular HGB Conc 34 g/dL 31-36 Red Cell Distribution Width 14 % 10.5-15 Platelet Count 291 10^3/uL 150-450 Mean Platelet Volume 7 um3 Low 7.4-10.4 Abs Neutrophils 2.3 10^3/uL 1.5-7.7 Abs Lymphocytes 1.6 10^3/uL 1.0-4.8 Abs Monocytes 0.5 10^3/uL 0-0.8 Abs Eosinophils 0.1 10^3/uL 0-0.6 Abs Basophils 0.1 10^3/uL 0-0.2 Abs Nucleated RBC 0.01 10^3/uL Granulocyte % 50.2 % 38-83 Lymphocyte % 34.4 % 25-47 Monocyte % 11.3 % High 1-9 Eosinophil % 2.9 % 0-6 Basophil % 1.2 % 0-2 Nucleated Red Blood Cells % 0.2 Lipid Panel - [facility] 12/18/2014 Creatine Kinase(CK) 104 U/L 10-223 CMP Panel 12/18/2014 Sodium 138 mmol/L 133-145 Potassium 4.4 mmol/L 3.5-5.0 Chloride 105 mmol/L 101-111 Co2 Carbon Dioxide 29 mmol/L 22-32 Anion Gap 4 mmol/L 2-11 Glucose 95 mg/dL 70-100 Blood Urea Nitrogen 17 mg/dL 6-24 Creatinine 1.05 mg/dL 0.67-1.17 BUN/Creatinine Ratio 16.2 8-20 Calcium 8.9 mg/dL 8.6-10.3 Total Protein 6.7 g/dL 6.4-8.9 Albumin 4.2 g/dL 3.2-5.2 Globulin 2.5 g/dL 2-4 Albumin/Globulin Ratio 1.7 1-3 Total Bilirubin 0.60 mg/dL 0.2-1.0 Alkaline Phosphatase 59 U/L 34-104 Alt 17 U/L 7-52 Ast 20 U/L 13-39 Egfr Non- 69.0 >60 Egfr 88.8 >60 23 Lipid Panel 12/18/2014 Triglycerides 113 mg/dL 24 Cholesterol 184 mg/dL 25 HDL Cholesterol 38.2 mg/dL 26 LDL Cholesterol 123 mg/dL 27 CBC W/Auto Diff 12/17/2014 White Blood Count <pending> RBC Red Blood Count <pending> Hemoglobin <pending> Hematocrit <pending> MCV (Corpuscular Volume) <pending> MCH (Corpuscular Hemoglobin) <pending> MCHC (Corpuscular Hemog Conc) <pending> RDW <pending> Platelet Count <pending> MPV <pending> Neutrophils <pending> Bands <pending> Lymphocytes <pending> Monocytes <pending> Eosinophils <pending> Basophils <pending> Absolute Basophil <pending> Absolute Eosinophil <pending> Absolute Lymphocyte <pending> Absolute Monocytes <pending> Absolute Neutrophils <pending> Lipid Panel - [facility] 12/17/2014 CK - Creatine Kinase <pending> CMP Panel 12/17/2014 Albumin <pending> Alt - SGPT <pending> Calcium <pending> Carbon Dioxide <pending> Chloride <pending> Z# Creatinine <pending> Glucose Serum <pending> Alkaline Phosphatase <pending> Potassium <pending> Protein Total <pending> Sodium <pending> Ast - Sgot <pending> BUN - Urea Nitrogen <pending> Lipid Panel 12/17/2014 Cholesterol Total <pending> Cholesterol/HDL Ratio <pending> High Density Lipoprotein <pending> LDL/HDL Risk Ratio <pending> Z#LDL Low Density Lipoprotein <pending> Triglycerides <pending> CBC Auto Diff 12/12/2013 White Blood Count 4.6 10^3/uL Low 4.8-10.8 Red Blood Count 4.43 10^6/uL 4.0-5.4 Hemoglobin 13.9 g/dL Low 14.0-18.0 Hematocrit 42 % 42-52 Mean Corpuscular Volume 94 fL 80-94 Mean Corpuscular Hemoglobin 31 pg 27-31 Mean Corpuscular HGB Conc 33 g/dL 31-36 Red Cell Distribution Width 14 % 10.5-15 Platelet Count 273 10^3/uL 150-450 Mean Platelet Volume 8 um3 7.4-10.4 Abs Neutrophils 2.3 10^3/uL 1.5-7.7 Abs Lymphocytes 1.5 10^3/uL 1.0-4.8 Abs Monocytes 0.6 10^3/uL 0-0.8 Abs Eosinophils 0.2 10^3/uL 0-0.6 Abs Basophils 0.1 10^3/uL 0-0.2 Abs Nucleated RBC 0.01 10^3/uL Granulocyte % 51.2 % 38-83 Lymphocyte % 32.0 % 25-47 Monocyte % 12.2 % High 1-9 Eosinophil % 3.4 % 0-6 Basophil % 1.2 % 0-2 Nucleated Red Blood Cells % 0.1 Comp Metabolic Panel 12/12/2013 Sodium 140 mmol/L 133-145 Potassium 4.4 mmol/L 3.7-5.6 Chloride 106 mmol/L 101-111 Co2 Carbon Dioxide 29 mmol/L 22-32 Anion Gap 5 mmol/L 2-11 Glucose 97 mg/dL 70-100 Blood Urea Nitrogen 23 mg/dL 6-24 Creatinine 1.01 mg/dL 0.67-1.17 BUN/Creatinine Ratio 22.8 High 8-20 Calcium 9.2 mg/dL 8.6-10.3 Total Protein 6.4 g/dL 6.4-8.9 Albumin 4.1 g/dL 3.2-5.2 Globulin 2.3 g/dL 2-4 Albumin/Globulin Ratio 1.8 1-3 Total Bilirubin 0.80 mg/dL 0.2-1.0 Alkaline Phosphatase 59 U/L 34-104 Alt 14 U/L 7-52 Ast 17 U/L 13-39 Egfr Non- 72.4 >60 Egfr 93.1 >60 28 Lipid Profile (Trig/Chol/HDL) 12/12/2013 Triglycerides 78 mg/dL 29 Cholesterol 172 mg/dL 30 HDL Cholesterol 43.2 mg/dL 31 LDL Cholesterol 113 mg/dL 32 Laboratory test finding 12/12/2013 Creatine Kinase 137 U/L 10-223 Laboratory test finding 03/29/2012 Creatine Kinase 86 U/L 0-200 TSH (Thyroid Stimulating Horm) 3.29 MIU/ML 0.34-5.60 Lipid Profile (Trig/Chol/HDL) 03/29/2012 Triglycerides 205 mg/dL High 40- 200 Cholesterol 185 mg/dL Less than 200 33 HDL Cholesterol 37 mg/dL Low 40-60 34 Cholesterol/HDL Ratio 5.0 AVERAGE High 1-4.44 LDL Cholesterol 107.0 mg/dL High Less Than 100 Comp Metabolic Panel 03/29/2012 Sodium 138 mmol/L 133-145 Potassium 4.7 mmol/L 3.5-5.0 Chloride 105 mmol/L 101-111 Co2 Carbon Dioxide 30.0 mmol/L 22-32 Anion Gap 3.0 mmol/L 2-11 Glucose 103 mg/dL High 70-100 Blood Urea Nitrogen 15 mg/dL 6-24 Creatinine 1.20 mg/dL 0.50-1.40 BUN/Creatinine Ratio 12.5 8-20 Calcium 9.3 mg/dL 8.1-9.9 Total Protein 6.5 GM/DL 6.2-8.1 Albumin 4.0 GM/DL 3.2-5.2 Globulin 2.5 GM/DL 2-4 Albumin/Globulin Ratio 1.6 1-3 Total Bilirubin 0.8 mg/dL 0.1-1.0 35 Alkaline Phosphatase 73 U/L 30-110 Alt 28 U/L 14-54 Ast 24 U/L 12-42 Egfr Non- 59.5 >60 Egfr 76.5 >60 36 CBC Auto Diff 03/29/2012 White Blood Count 5.6 10^3/uL 4.8-10.8 Red Blood Count 4.74 10^6/uL 4.0-5.4 Hemoglobin 15.0 g/dL 14.0-18.0 Hematocrit 44 % 42-52 Mean Corpuscular Volume 92 fL 80-94 Mean Corpuscular Hemoglobin 32 pg High 27-31 Mean Corpuscular HGB Conc 34 g/dL 31-36 Red Cell Distribution Width 13 % 10.5-15 Platelet Count 273 10^3/uL 150-450 Mean Platelet Volume 8 um3 7.4-10.4 Abs Neutrophils 3.1 10^3/uL 1.5-7.7 Abs Lymphocytes 1.7 10^3/uL 1.0-4.8 Abs Monocytes 0.6 10^3/uL 0-0.8 Abs Eosinophils 0.2 10^3/uL 0-0.6 Abs Basophils 0.1 10^3/uL 0-0.2 Abs Nucleated RBC 0 10^3/uL Granulocyte % 55.3 % 38-83 Lymphocyte % 29.4 % 25-47 Monocyte % 10.8 % High 1-9 Eosinophil % 3.4 % 0-6 Basophil % 1.1 % 0-2 Nucleated Red Blood Cells % 0.1 Lipid Profile (Trig/Chol/HDL) 01/03/2012 Triglyceride 166 mg/dL 40-200 Cholesterol 194 mg/dL Less Than 200 37 High Density Lipoprotein 38 mg/dL Low 40-60 38 Cholesterol/HDL Ratio 5.11 AVERAGE High 1-4.97 Low Density Lipoprotein 123 mg/dL High Less Than 100 39 Liver Function Panel 01/03/2012 Total Protein 6.8 GM/DL 6.2-8.1 Albumin 4.0 GM/DL 3.2-5.2 Globulin 2.8 GM/DL 2-4 Albumin/Globulin Ratio 1.4 1-3 Bilirubin Total 0.9 mg/dL 0.4-1.5 40 Bilirubin Direct 0.1 mg/dL 0.1-0.5 Indirect Bilirubin 0.8 mg/dL 0.3-1.0 41 Alkaline Phosphatase 67 U/L 39-117 Alt (SGPT) 21 U/L 17-63 Ast (Sgot) 19 U/L 12-42 Laboratory test finding 01/03/2012 Glucose 108 mg/dL High 70-100 Comp Metabolic Panel 09/27/2011 Sodium 136 mmol/L 135-145 Potassium 4.9 mmol/L 3.5-5.0 Chloride 102 mmol/L 101-111 Co2 (Carbon Dioxide) 29.0 mmol/L 22-32 Anion Gap 5.0 mmol/L 2-11 42 Glucose 110 mg/dL High 70-100 BUN 16 mg/dL 6-24 Creatinine 1.1 mg/dL 0.50-1.40 One Over Creatinine 0.90 BUN/Creatinine Ratio 14.5 8-20 Calcium 9.0 mg/dL 8.1-9.9 Total Protein 6.8 GM/DL 6.2-8.1 Albumin 4.2 GM/DL 3.2-5.2 Globulin 2.6 GM/DL 2-4 Albumin/Globulin Ratio 1.6 1-3 Bilirubin Total 0.9 mg/dL 0.4-1.5 43 Alkaline Phosphatase 73 U/L 39-117 Alt (SGPT) 20 U/L 17-63 Ast (Sgot) 18 U/L 12-42 eGFR Non- 66.0 > 60 eGFR 84.9 > 60 44 Lipid Profile (Trig/Chol/HDL) 09/27/2011 Triglyceride 198 mg/dL 40-200 Cholesterol 230 mg/dL High Less Than 200 45 High Density Lipoprotein 37 mg/dL Low 40-60 46 Cholesterol/HDL Ratio 6.22 AVERAGE High 1-4.97 Low Density Lipoprotein 153 mg/dL High Less Than 100 47 Laboratory test finding 09/27/2011 CPK (Creatine Kinase) 78 U/L 0-200 Comp Metabolic Panel 07/12/2010 Sodium 134 mmol/L Low 135-145 Potassium 4.1 mmol/L 3.5-5.0 Chloride 103 mmol/L 101-111 Co2 (Carbon Dioxide) 27.0 mmol/L 22-32 Anion Gap 4.0 mmol/L 2-11 48 Glucose 96 mg/dL 70-100 BUN 15 mg/dL 6-24 Creatinine 1.10 mg/dL 0.50-1.40 One Over Creatinine 0.90 BUN/Creatinine Ratio 13.6 8-20 Calcium 9.0 mg/dL 8.1-9.9 Total Protein 6.4 GM/DL 6.2-8.1 Albumin 4.3 GM/DL 3.2-5.2 Globulin 2.1 GM/DL 2-4 Albumin/Globulin Ratio 2.0 1-3 Bilirubin Total 0.8 mg/dL 0.4-1.5 49 Alkaline Phosphatase 60 U/L 39-117 Alt (SGPT) 17 U/L 17-63 Ast (Sgot) 19 U/L 12-42 eGFR Non- 70.3 > 60 eGFR 85.1 > 60 50 Lipid Profile (Trig/Chol/HDL) 07/12/2010 Triglyceride 106 mg/dL 40-200 Cholesterol 150 mg/dL Less Than 200 51 High Density Lipoprotein 38 mg/dL Low 40-60 52 Cholesterol/HDL Ratio 3.95 AVERAGE 1-4.97 Low Density Lipoprotein 91 mg/dL Less Than 100 53 Laboratory test finding 07/12/2010 CPK (Creatine Kinase) 99 U/L 0-200 CBC With Electronic Diff 11/29/2009 White Blood Count 8.0 CUMM 4.8-10.8 Red Cell Count 5.29 CUMM 4.6-6.2 Hemoglobin 15.7 g/dL 14.0-18.0 Hematocrit 49 % 42-52 Mean Corpuscular Volume 92 um3 80-94 Mean Corpuscular Hemoglob 30 pg 27-31 Mean Corpuscular HGB Cone 32 g/dL 32-36 Redcell Distribution WDTH 13 % 10.5-15 Platelet Count 362 CUMM 150-450 Mean Platelet Volume 7.3 um3 Low 7.4-10.4 Gran % 68.5 % 38-83 Lymph % 18.5 % Low 25-47 Mononuclear % 10.8 % High 1-9 Eosinophil % 1.6 % 0-6 Basophil % 0.6 % 0-2 Abs Lymphs 1.5 1.0-4.8 Abs Mononuclear 0.9 High 0-0.8 Absolute Neutrophil Count 5.5 1.5-7.7 Abs Eosinophils 0.1 0-0.6 Abs Basophils 0 0-0.2 54 Comp Metabolic Panel 11/29/2009 Sodium 139 mmol/L 135-145 Potassium 5.0 mmol/L 3.5-5.0 Chloride 103 mmol/L 101-111 Co2 (Carbon Dioxide) 28.0 mmol/L 22-32 Anion Gap 8.0 mmol/L 2-11 55 Glucose 108 mg/dL High 70-100 56 BUN 20 mg/dL 6-24 Creatinine 1.40 mg/dL 0.50-1.40 One Over Creatinine 0.70 BUN/Creatinine Ratio 14.3 8-20 Calcium 9.5 mg/dL 8.1-9.9 57 Total Protein 6.9 GM/DL 6.2-8.1 Albumin 4.1 GM/DL 3.2-5.2 Globulin 2.8 GM/DL 2-4 Albumin/Globulin Ratio 1.5 1-3 Bilirubin Total 0.9 mg/dL 0.4-1.5 58 Alkaline Phosphatase 83 U/L 39-117 Alt (SGPT) 21 U/L 17-63 Ast (Sgot) 20 U/L 12-42 eGFR Non- 53.4 > 60 eGFR 64.6 > 60 59 Lipid Profile (Trig/Chol/HDL) 11/29/2009 Triglyceride 104 mg/dL 40-200 Cholesterol 189 mg/dL Less Than 200 60 High Density Lipoprotein 48 mg/dL 40-60 61 Cholesterol/HDL Ratio 3.94 AVERAGE 1-4.97 Low Density Lipoprotein 120 mg/dL High Less Than 100 62 Laboratory test finding 11/29/2009 Helicobacter Pylori Igg AB <0.75 Index () 63 Laboratory test finding 12/22/2008 PSA Screening 2.46 NG/ML 0-4 64 Lipid Profile 12/09/2008 Triglyceride 98 mg/dL 40-200 (Trig/Chol/HDL) Cholesterol 159 mg/dL Less Than 200 65 High Density Lipoprotein 47 mg/dL 40-60 66 Cholesterol/HDL Ratio 3.38 AVERAGE 1-4.97 Low Density Lipoprotein 92 mg/dL Less Than 100 67 Basic Metabolic Panel 12/09/2008 Sodium 139 mmol/L 135-145 Potassium 4.8 mmol/L 3.5-5.0 Chloride 107 mmol/L 101-111 Co2 (Carbon Dioxide) 28.0 mmol/L 22-32 Anion Gap 4.0 mmol/L 2-11 68 Glucose 99 mg/dL 70-100 69 BUN 14 mg/dL 6-24 Creatinine 1.00 mg/dL 0.50-1.40 One Over Creatinine 1.00 BUN/Creatinine Ratio 14.0 8-20 Calcium 9.6 mg/dL 8.1-9.9 70 Liver Function Panel 12/09/2008 Total Protein 6.4 GM/DL 6.2-8.1 Albumin 4.3 GM/DL 3.2-5.2 Globulin 2.1 GM/DL 2-4 Albumin/Globulin Ratio 2.0 1-3 Bilirubin Total 0.7 mg/dL 0.4-1.5 71 Bilirubin Direct < 0.1 mg/dL Low 0.1-0.5 Indirect Bilirubin (SEE NOTE) mg/dL 0.1-0.75 72 Alkaline Phosphatase 73 U/L 39-117 Alt (SGPT) 17 U/L 17-63 Ast (Sgot) 19 U/L 12-42 Comp Metabolic Panel 07/21/2008 Sodium 138 mmol/L 135-145 73 Potassium 4.7 mmol/L 3.5-5.0 73 Chloride 105 mmol/L 101-111 73 Co2 (Carbon Dioxide) 27.0 mmol/L 22-32 73 Anion Gap 6.0 mmol/L 2-11 73, 74 Glucose 104 mg/dL High 70-100 73, 75 BUN 12 mg/dL 6-24 73 Creatinine 1.30 mg/dL 0.50-1.40 73 One Over Creatinine 0.70 73 BUN/Creatinine Ratio 9.2 8-20 73 Calcium 9.5 mg/dL 8.1-9.9 73, 76 Total Protein 6.3 GM/DL 6.2-8.1 73 Albumin 4.1 GM/DL 3.2-5.2 73 Globulin 2.2 GM/DL 2-4 73 Albumin/Globulin Ratio 1.9 1-3 73 Bilirubin Total 0.8 mg/dL 0.4-1.5 73 Alkaline Phosphatase 70 U/L 39-117 73 Alt (SGPT) 28 U/L 17-63 73 Ast (Sgot) 26 U/L 12-42 73 Lipid Profile (Trig/Chol/HDL) 07/21/2008 Triglyceride 137 mg/dL 40-200 73 Cholesterol 165 mg/dL Less Than 200 73, 77 High Density Lipoprotein 34 mg/dL Low 40-60 73, 78 Cholesterol/HDL Ratio 4.85 AVERAGE 1-4.97 73 Low Density Lipoprotein 104 mg/dL High Less Than 100 73, 79 Laboratory test finding 07/21/2008 CPK (Creatine Kinase) 103 U/L 0-200 73 Basic Metabolic Panel Stat 08/24/2006 One Over Creatinine 1.00 Anion Gap 4.0 mmol/L 2-11 80 BUN 17 mg/dL 6-24 Calcium 9.6 mg/dL 8.7-10.2 Chloride 105 mmol/L 101-111 Co2 (Carbon Dioxide) 27.0 mmol/L 22-32 Glucose 121 mg/dL High 70-105 Potassium 5.1 mmol/L High 3.5-5.0 Sodium 136 mmol/L 135-145 BUN/Creatinine Ratio 17.0 8-20 Creatinine 1.0 mg/dL 0.5-1.4 Protime 08/17/2006 Inr 0.90 81 Protime 11.4 10.9-13.1 Basic Metabolic Panel 08/17/2006 One Over Creatinine 0.90 Anion Gap 6.0 mmol/L 2-11 82 BUN 15 mg/dL 6-24 Calcium 9.9 mg/dL 8.7-10.2 Chloride 107 mmol/L 101-111 Co2 (Carbon Dioxide) 29.0 mmol/L 22-32 Glucose 98 mg/dL 70-105 Potassium 5.1 mmol/L High 3.5-5.0 Sodium 142 mmol/L 135-145 BUN/Creatinine Ratio 13.6 8-20 Creatinine 1.1 mg/dL 0.5-1.4 CBC With Manual Diff 08/17/2006 RBC Morphology NORMAL White Blood Count 6.5 CUMM 4.8-10.8 Absolute Neutrophil Count 3.4 Atypical Lymph 5 % 0-6 Basophil 1 % 0-2 Hematocrit 42 % 42-52 Hemoglobin 14.8 g/dL 14.0-18.0 Eosenophil 4 % 0-6 Lymphocyte 26 % 5-47 Mean Corpuscular HGB Cone 36 g/dL 32-36 Mean Corpuscular Hemoglob 32 pg High 27-31 Mean Corpuscular Volume 89 um3 80-94 Monocyte 11 % 0-13 Mean Platelet Volume 7.4 um3 7.4-10.4 Platelet Count 363 CUMM 150-450 Polysegmented Neutrophil 53 % 38-83 Red Cell Count 4.70 CUMM 4.6-6.2 Redcell Distribution WDTH 13 % 10.5-15 Cath Panel 08/17/2006 PTT (Aptt) 25.6 20.4-29.5 83 Liver Function Panel 10/20/2005 Albumin/Globulin Ratio 1.7 1-3 73 Albumin 4.3 GM/DL 3.2-5.2 73 Alkaline Phosphatase 75 U/L 39-117 73 Alt (SGPT) 25 U/L 17-63 73 Ast (Sgot) 24 U/L 12-42 73 Bilirubin Direct 0.2 mg/dL 0.1-0.5 73 Globulin 2.5 GM/DL 2-4 73 Indirect Bilirubin 0.5 mg/dL 0.1-0.75 73 Bilirubin Total 0.7 mg/dL 0.4-1.5 73 Total Protein 6.8 GM/DL 6.2-8.1 73 Lipid Profile (Trig/Chol/HDL) 10/20/2005 Cholesterol 137 mg/dL Less Than 200 73, 84 Triglyceride 124 mg/dL 40-200 73 High Density Lipoprotein 35 mg/dL Low 40-60 73, 85 Low Density Lipoprotein 77 mg/dL Less Than 100 73, 86 Cholesterol/HDL Ratio 3.91 AVERAGE 1-4.97 73 Laboratory test finding 10/20/2005 Potassium 5.0 mmol/L 3.5-5.0 73 1 Because ethnic data is not always readily available, this report includes an eGFR for both -Americans and non- Americans. The National Kidney Disease Education Program (NKDEP) does not endorse the use of the MDRD equation for patients that are not between the ages of 18 and 70, are , have extremes of body size, muscle mass, or nutritional status, or are non- or non-. According to the National Kid[employer], irrespective of diagnosis, the stage of the disease is based on the level of kidney function: Stage Description GFR(mL/min/1.73 m(2)) 1 Kidney damage with normal or decreased GFR 90 2 Kidney damage with mild decrease in GFR 60-89 3 Moderate decrease in GFR 30-59 4 Severe decrease in GFR 15-29 5 Kidney failure <15 (or dialysis) 2 Because ethnic data is not always readily available, this report includes an eGFR for both -Americans and non- Americans. The National Kidney Disease Education Program (NKDEP) does not endorse the use of the MDRD equation for patients that are not between the ages of 18 and 70, are , have extremes of body size, muscle mass, or nutritional status, or are non- or non-. According to the National Kid[employer] Foundation, irrespective of diagnosis, the stage of the disease is based on the level of kidney function: Stage Description GFR(mL/min/1.73 m(2)) 1 Kidney damage with normal or decreased GFR 90 2 Kidney damage with mild decrease in GFR 60-89 3 Moderate decrease in GFR 30-59 4 Severe decrease in GFR 15-29 5 Kidney failure <15 (or dialysis) 3 Desirable: <150 Borderline High: 150-199 High: 200-499 Very High: >500 4 Desirable: <200 Borderline High: 200-239 High: >239 5 Low: <40 Desirable: 40-60 High: >60 6 Desirable: <100 Near Optimal: 100-129 Borderline High: 130-159 High: 160-189 Very High: >189 7 Because ethnic data is not always readily available, this report includes an eGFR for both -Americans and non- Americans. The National Kidney Disease Education Program (NKDEP) does not endorse the use of the MDRD equation for patients that are not between the ages of 18 and 70, are , have extremes of body size, muscle mass, or nutritional status, or are non- or non-. According to the National Kid[employer], irrespective of diagnosis, the stage of the disease is based on the level of kidney function: Stage Description GFR(mL/min/1.73 m(2)) 1 Kidney damage with normal or decreased GFR 90 2 Kidney damage with mild decrease in GFR 60-89 3 Moderate decrease in GFR 30-59 4 Severe decrease in GFR 15-29 5 Kidney failure <15 (or dialysis) 8 Desirable <150 Borderline high 150-199 High 200-499 Very High >500 9 Desirable <200 Borderline high 200-239 High >239 10 Low <40 Desirable: 40-60 High: >60 11 Desirable: <100 mg/dL Near Optimal: 100-129 mg/dL Borderline High: 130-159 mg/dL High: 160-189 mg/dL Very High: >189 mg/dL 12 Because ethnic data is not always readily available, this report includes an eGFR for both -Americans and non- Americans. The National Kidney Disease Education Program (NKDEP) does not endorse the use of the MDRD equation for patients that are not between the ages of 18 and 70, are , have extremes of body size, muscle mass, or nutritional status, or are non- or non-. According to the National Kid[employer] Foundation, irrespective of diagnosis, the stage of the disease is based on the level of kidney function: Stage Description GFR(mL/min/1.73 m(2)) 1 Kidney damage with normal or decreased GFR 90 2 Kidney damage with mild decrease in GFR 60-89 3 Moderate decrease in GFR 30-59 4 Severe decrease in GFR 15-29 5 Kidney failure <15 (or dialysis) 13 Desirable <150 Borderline high 150-199 High 200-499 Very High >500 14 Desirable <200 Borderline high 200-239 High >239 15 Low <40 Desirable: 40-60 High: >60 16 Desirable: <100 mg/dL Near Optimal: 100-129 mg/dL Borderline High: 130-159 mg/dL High: 160-189 mg/dL Very High: >189 mg/dL 17 >100 to <200 pg/mL: likely compensated congestive heart failure (CHF) 200 to 400 pg/mL: likely moderate CHF >400 pg/mL: likely moderate to severe CHF 18 Desirable <150 Borderline high 150-199 High 200-499 Very High >500 19 Desirable <200 Borderline high 200-239 High >239 20 Low <40 Desirable: 40-60 High: >60 21 Desirable: <100 mg/dL Near Optimal: 100-129 mg/dL Borderline High: 130-159 mg/dL High: 160-189 mg/dL Very High: >189 mg/dL 22 Because ethnic data is not always readily available, this report includes an eGFR for both -Americans and non- Americans. The National Kidney Disease Education Program (NKDEP) does not endorse the use of the MDRD equation for patients that are not between the ages of 18 and 70, are , have extremes of body size, muscle mass, or nutritional status, or are non- or non-. According to the National Kid[employer] Foundation, irrespective of diagnosis, the stage of the disease is based on the level of kidney function: Stage Description GFR(mL/min/1.73 m(2)) 1 Kidney damage with normal or decreased GFR 90 2 Kidney damage with mild decrease in GFR 60-89 3 Moderate decrease in GFR 30-59 4 Severe decrease in GFR 15-29 5 Kidney failure <15 (or dialysis) 23 Because ethnic data is not always readily available, this report includes an eGFR for both -Americans and non- Americans. The National Kidney Disease Education Program (NKDEP) does not endorse the use of the MDRD equation for patients that are not between the ages of 18 and 70, are , have extremes of body size, muscle mass, or nutritional status, or are non- or non-. According to the National Kid[employer], irrespective of diagnosis, the stage of the disease is based on the level of kidney function: Stage Description GFR(mL/min/1.73 m(2)) 1 Kidney damage with normal or decreased GFR 90 2 Kidney damage with mild decrease in GFR 60-89 3 Moderate decrease in GFR 30-59 4 Severe decrease in GFR 15-29 5 Kidney failure <15 (or dialysis) 24 Desirable <150 Borderline high 150-199 High 200-499 Very High >500 25 Desirable <200 Borderline high 200-239 High >239 26 Low <40 Desirable: 40-60 High: >60 27 Desirable: <100 mg/dL Near Optimal: 100-129 mg/dL Borderline High: 130-159 mg/dL High: 160-189 mg/dL Very High: >189 mg/dL 28 Because ethnic data is not always readily available, this report includes an eGFR for both -Americans and non- Americans. The National Kidney Disease Education Program (NKDEP) does not endorse the use of the MDRD equation for patients that are not between the ages of 18 and 70, are , have extremes of body size, muscle mass, or nutritional status, or are non- or non-. According to the National Kid[employer], irrespective of diagnosis, the stage of the disease is based on the level of kidney function: Stage Description GFR(mL/min/1.73 m(2)) 1 Kidney damage with normal or decreased GFR 90 2 Kidney damage with mild decrease in GFR 60-89 3 Moderate decrease in GFR 30-59 4 Severe decrease in GFR 15-29 5 Kidney failure <15 (or dialysis) 29 Desirable <150 Borderline high 150-199 High 200-499 Very High >500 30 Desirable <200 Borderline high 200-239 High >239 31 Low <40 Desirable: 40-60 High: >60 32 Desirable <100 Near Optimal 100-129 Borderline high 130-159 High 160-189 Very High >189 33 Desirable: Less than 200 MG/DL Borderline-High Risk: 200-239 MG/DL High-Risk: 240 MG/DL and over 34 HDL Interpretation: Undesirable: High Risk: Less than 40 MG/DL Desirable: Low Risk: Greater than 60 MG/DL 35 A metabolite of Naproxen, O-desmethylnaproxen, has been shown to interfere with the Jendrassik-Blackstone method for measuring total bilirubin. Samples from patients who have taken Naproxen have shown spurious elevation in total bilirubin levels. 36 Because ethnic data is not always readily available, this report includes an eGFR for both -Americans and non- Americans. The National Kidney Disease Education Program (NKDEP) does not endorse the use of the MDRD equation for patients that are not between the ages of 18 and 70, are , have extremes of body size, muscle mass, or nutritional status, or are non- or non-. According to the National Kid[employer] Foundation, irrespective of diagnosis, the stage of the disease is based on the level of kidney function: Stage Description GFR(mL/min/1.73 m(2)) 1 Kidney damage with normal or decreased GFR 90 2 Kidney damage with mild decrease in GFR 60-89 3 Moderate decrease in GFR 30-59 4 Severe decrease in GFR 15-29 5 Kidney failure <15 (or dialysis) 37 CHOLESTEROL INTERPRETATION: Desirable: Less than 200 MG/DL Borderline-High Risk: 200-239 MG/DL High-Risk: 240 MG/DL and over 38 HDL INTERPRETATION: Undesirable: High Risk: Less than 40 MG/DL Desirable: Low Risk: Greater than 60 MG/DL 39 LDL INTERPRETATION: Low Risk Optimal Level: LDL Less than 100 MG/DL Near or Above Optimal: LDL 100-129 MG/DL Borderline High Risk: LDL 130-159 MG/DL High Risk: LDL 160-189 MG/DL Very High Risk: LDL Greater than 189 MG/DL 40 A metabolite of Naproxen, O-desmethylnaproxen, has been shown to interfere with the Jendrassik-Mirtha method for measuring total bilirubin. Samples from patients who have taken Naproxen have shown spurious elevation in total bilirubin levels. 41 Please note updated reference range, effective 01/13/10 42 Anion gap measurement may be of limited value in the presence of any alkalosis, especially in a combined acid base disorder. . 43 A metabolite of Naproxen, O-desmethylnaproxen, has been shown to interfere with the Jendrassik-Blackstone method for measuring total bilirubin. Samples from patients who have taken Naproxen have shown spurious elevation in total bilirubin levels. 44 Because ethnic data is not always readily available, this report includes an eGFR for both -Americans and non- Americans. The National Kidney Disease Education Program (NKDEP) does not endorse the use of the MDRD equation for patients that are not between the ages of 18 and 70, are , have extremes of body size, muscle mass, or nutritional status, or are non- or non-. According to the National Kid[employer] Foundation, irrespective of diagnosis, the stage of the disease is based on the level of kidney function: Stage Description GFR(mL/min/1.73 m(2)) 1 Kidney damage with normal or decreased GFR 90 2 Kidney damage with mild decrease in GFR 60-89 3 Moderate decrease in GFR 30-59 4 Severe decrease in GFR 15-29 5 Kidney failure <15 (or dialysis) 45 CHOLESTEROL INTERPRETATION: Desirable: Less than 200 MG/DL Borderline-High Risk: 200-239 MG/DL High-Risk: 240 MG/DL and over 46 HDL INTERPRETATION: Undesirable: High Risk: Less than 40 MG/DL Desirable: Low Risk: Greater than 60 MG/DL 47 LDL INTERPRETATION: Low Risk Optimal Level: LDL Less than 100 MG/DL Near or Above Optimal: LDL 100-129 MG/DL Borderline High Risk: LDL 130-159 MG/DL High Risk: LDL 160-189 MG/DL Very High Risk: LDL Greater than 189 MG/DL 48 Anion gap measurement may be of limited value in the presence of any alkalosis, especially in a combined acid base disorder. . 49 A metabolite of Naproxen, O-desmethylnaproxen, has been shown to interfere with the Jendrassik-Blackstone method for measuring total bilirubin. Samples from patients who have taken Naproxen have shown spurious elevation in total bilirubin levels. 50 Because ethnic data is not always readily available, this report includes an eGFR for both -Americans and non- Americans. The National Kidney Disease Education Program (NKDEP) does not endorse the use of the MDRD equation for patients that are not between the ages of 18 and 70, are , have extremes of body size, muscle mass, or nutritional status, or are non- or non-. According to the National Kidney Foundation, irrespective of diagnosis, the stage of the disease is based on the level of kidney function: Stage Description GFR(mL/min/1.73 m(2)) 1 Kidney damage with normal or decreased GFR 90 2 Kidney damage with mild decrease in GFR 60-89 3 Moderate decrease in GFR 30-59 4 Severe decrease in GFR 15-29 5 Kidney failure <15 (or dialysis) 51 CHOLESTEROL INTERPRETATION: Desirable: Less than 200 MG/DL Borderline-High Risk: 200-239 MG/DL High-Risk: 240 MG/DL and over 52 HDL INTERPRETATION: Undesirable: High Risk: Less than 40 MG/DL Desirable: Low Risk: Greater than 60 MG/DL 53 LDL INTERPRETATION: Low Risk Optimal Level: LDL Less than 100 MG/DL Near or Above Optimal: LDL 100-129 MG/DL Borderline High Risk: LDL 130-159 MG/DL High Risk: LDL 160-189 MG/DL Very High Risk: LDL Greater than 189 MG/DL 54 Lymphopenia % 55 Anion gap measurement may be of limited value in the presence of any alkalosis, especially in a combined acid base disorder. . 56 Note change in reference range as of 02/13/08. The change was based on recommendations from the [employer]. 57 Please note change in reference range effective 07 . 58 A metabolite of Naproxen, O-desmethylnaproxen, has been shown to interfere with the Jendrassik-Mirtha method for measuring total bilirubin. Samples from patients who have taken Naproxen have shown spurious elevation in total bilirubin levels. 59 Because ethnic data is not always readily available, this report includes an eGFR for both -Americans and non- Americans. The National Kidney Disease Education Program (NKDEP) does not endorse the use of the MDRD equation for patients that are not between the ages of 18 and 70, are , have extremes of body size, muscle mass, or nutritional status, or are non- or non-. According to the National Kidney Foundation, irrespective of diagnosis, the stage of the disease is based on the level of kidney function: Stage Description GFR(mL/min/1.73 m(2)) 1 Kidney damage with normal or decreased GFR 90 2 Kidney damage with mild decrease in GFR 60-89 3 Moderate decrease in GFR 30-59 4 Severe decrease in GFR 15-29 5 Kidney failure <15 (or dialysis) 60 CHOLESTEROL INTERPRETATION: Desirable: Less than 200 MG/DL Borderline-High Risk: 200-239 MG/DL High-Risk: 240 MG/DL and over 61 HDL INTERPRETATION: Undesirable: High Risk: Less than 40 MG/DL Desirable: Low Risk: Greater than 60 MG/DL 62 LDL INTERPRETATION: Low Risk Optimal Level: LDL Less than 100 MG/DL Near or Above Optimal: LDL 100-129 MG/DL Borderline High Risk: LDL 130-159 MG/DL High Risk: LDL 160-189 MG/DL Very High Risk: LDL Greater than 189 MG/DL 63 -- REFERENCE VALUE -- <0.75 (negative) 0.75-0.99 (equivocal) >=1.00 (positive) Test Performed by: [facility] [address] [place] [id number] Sexual Assault Counselor: Marcus Padron III, M.D. 64 * SERUM LEVELS OF PSA MEASURED USING THE MOSHE KELLEN ACCESS HYBRITECH IMMUNOASSAY SHOULD NOT BE INTERPRETED ABSOLUTE EVIDENCE OF THE PRESENCE OR ABSENCE OF DISEASE. THE PSA VALUE SHOULD BE USED IN CONJUNCTION WITH OTHER PERTINENT CLINICAL DIAGNOSTIC PROCEDURES. 65 CHOLESTEROL INTERPRETATION: Desirable: Less than 200 MG/DL Borderline-High Risk: 200-239 MG/DL High-Risk: 240 MG/DL and over 66 HDL INTERPRETATION: Undesirable: High Risk: Less than 40 MG/DL Desirable: Low Risk: Greater than 60 MG/DL 67 LDL INTERPRETATION: Low Risk Optimal Level: LDL Less than 100 MG/DL Near or Above Optimal: LDL 100-129 MG/DL Borderline High Risk: LDL 130-159 MG/DL High Risk: LDL 160-189 MG/DL Very High Risk: LDL Greater than 189 MG/DL 68 Anion gap measurement may be of limited value in the presence of any alkalosis, especially in a combined acid base disorder. . 69 Note change in reference range as of 02/13/08. The change was based on recommendations from the [place] [employer]. 70 Please note change in reference range effective 07 . 71 A metabolite of Naproxen, O-desmethylnaproxen, has been shown to interfere with the Jendrassik-Mirtha method for measuring total bilirubin. Samples from patients who have taken Naproxen have shown spurious elevation in total bilirubin levels. 72 UNABLE TO CALCULATE IND.BILI D.BILI IS <0.1 73 FASTING 74 Anion gap measurement may be of limited value in the presence of any alkalosis, especially in a combined acid base disorder. . 75 Note change in reference range as of 02/13/08. The change was based on recommendations from the [place] [employer]. 76 Please note change in reference range effective 07 . 77 CHOLESTEROL INTERPRETATION: Desirable: Less than 200 MG/DL Borderline-High Risk: 200-239 MG/DL High-Risk: 240 MG/DL and over 78 HDL INTERPRETATION: Undesirable: High Risk: Less than 40 MG/DL Desirable: Low Risk: Greater than 60 MG/DL 79 LDL INTERPRETATION: Low Risk Optimal Level: LDL Less than 100 MG/DL Near or Above Optimal: LDL 100-129 MG/DL Borderline High Risk: LDL 130-159 MG/DL High Risk: LDL 160-189 MG/DL Very High Risk: LDL Greater than 189 MG/DL 80 Anion gap measurement may be of limited value in the presence of any alkalosis, especially in a combined acid base disorder. . 81 JOSUE VALUE=2.00 ( OF 04/10/06) Recommended INR for Patients on Oral Anticoagulants Prophylaxis 2.0 - 3.0 Treatment of thrombosis 2.0 - 3.0 Prevention of embolism 2.0 - 3.0 Prevention of embolism from prosthetic heart valves 2.5 - 3.5 82 Anion gap measurement may be of limited value in the presence of any alkalosis, especially in a combined acid base disorder. . 83 PLEASE NOTE NEW REFERENCE RANGE EFFECTIVE 05 84 Classification: Desirable . 85 Classification: Low . 86 CALCULATED LDL APPROXIMATES THE VALUE OF A DIRECT LDL MEASUREMENT. Classification: Optimal Level . Procedures Date CPT Code Description Status 03/20/2018 68240 ECHO Transthoracic, Real-Time 2D With Doppler And Color Completed Flow 03/20/2018 71644 ECHO Transthoracic, Real-Time 2D With Doppler And Color Completed Flow 02/26/2018 70873 EKG Tracing & Interpretation Completed 02/04/2018 11357 Pace Maker Eval W/Iterative Adjment Dual Lead Completed 02/04/2018 69247 Pace Maker Eval W/Iterative Adjment Dual Lead Completed 01/29/2018 52673 Pace Maker Eval W/Iterative Adjment Dual Lead Completed 01/29/2018 52494 Pace Maker Eval W/Iterative Adjment Dual Lead Completed 12/31/2017 34264 EKG Tracing & Interpretation Completed 08/20/2017 09838 Pace Maker Eval W/Iterative Adjment Dual Lead Completed 08/20/2017 18073 Pace Maker Eval W/Iterative Adjment Dual Lead Completed 08/06/2017 30190 EKG Tracing & Interpretation Completed 08/02/2017 66334 Pace Maker Eval W/Iterative Adjment Dual Lead Completed 08/02/2017 82143 Pace Maker Eval W/Iterative Adjment Dual Lead Completed 07/04/2017 88055 EKG, Interpretation Only Completed 07/03/2017 09310 Moderate Sedation Services; Same Phys Each Additional Completed 15 Mins 07/03/2017 71917 Moderate Sedation Services; Same Phys Intl 15 Mins; PT Completed >=5 Years 07/03/2017 16340 EKG, Interpretation Only Completed 07/03/2017 60745 Perm Pacemaker Av Sequential Atrial And Ventricular Completed 06/08/2017 23092 Holter Monitor Review (24 hr)dr review & interp only Completed 06/07/2017 16125 EKG Tracing & Interpretation Completed 06/07/2017 31322 EKG Tracing & Interpretation Completed 06/04/2017 15045 ECG Monitor/Recording W/Visual Superimposition Scanning Completed 06/04/2017 91915 ECG Monitor/Recording W/Visual Superimposition Scanning Completed 05/22/2017 18134 EKG Tracing & Interpretation Completed 04/27/2016 20861 EKG Tracing & Interpretation Completed 11/03/2015 60272 EKG Tracing & Interpretation Completed 08/17/2015 35989 EKG Tracing & Interpretation Completed 07/23/2015 54823 Stress Test Completed 07/23/2015 26215 Myocardial Perfusion Imaging Tomographic (Spect) Completed Multiple Studies 07/23/2015 25209 Myocardial Perfusion Imaging Tomographic (Spect) Completed Multiple Studies 06/24/2015 20891 Holter Monitor Review (24 hr)dr review & interp only Completed 06/24/2015 30350 ECG Monitor/Recording W/Visual Superimposition Scanning Completed 06/23/2015 78925 ECG Monitor/Recording W/Visual Superimposition Scanning Completed 06/23/2015 26484 Holter Monitor Review (24 hr)dr review & interp only Completed 06/01/2015 80826 ECHO Transthoracic, Real-Time 2D With Doppler And Color Completed Flow 05/27/2015 98323 ECHO Stress Test Incl Perf Contiuous ekg Monitoring Completed W/Phys Superv 05/27/2015 52005 ECHO Stress Test Incl Perf Contiuous ekg Monitoring Completed W/Phys Superv 05/04/2015 95368 EKG Tracing & Interpretation Completed 08/06/2014 05534 ECHO Transthoracic, Real-Time 2D With Doppler And Color Completed Flow 08/03/2014 07586 EKG Tracing & Interpretation Completed 12/10/2013 11311 EKG Tracing & Interpretation Completed 04/15/2013 75206 ECHO Transthoracic, Real-Time 2D With Doppler And Color Completed Flow 03/12/2013 82505 EKG Tracing & Interpretation Completed 08/08/2012 81521 EKG Tracing & Interpretation Completed 05/03/2012 89859 ECHO Stress Test Incl Perf Contiuous ekg Monitoring Completed W/Phys Superv 05/03/2012 54709 ECHO Stress Test Incl Perf Contiuous ekg Monitoring Completed W/Phys Superv 03/28/2012 13082 ECHO Transthoracic, Real-Time 2D With Doppler And Color Completed Flow 03/27/2012 72514 EKG Tracing & Interpretation Completed 10/03/2011 85325 ECHO Transthoracic, Real-Time 2D With Doppler And Color Completed Flow 09/07/2011 04438 EKG Tracing & Interpretation Completed 06/29/2010 33633 EKG Tracing & Interpretation Completed 10/26/2009 32920 EKG Tracing & Interpretation Completed 01/14/2009 24328 EKG Tracing & Interpretation Completed 05/13/2008 65476 EKG Tracing & Interpretation Completed 04/18/2007 61460 EKG Tracing & Interpretation Completed 08/24/2006 00126 EKG, Interpretation Only Completed 08/24/2006 28447 EKG, Interpretation Only Completed 08/24/2006 38198 Com RT And LT Catheterization Completed 08/24/2006 33190 Inj Proc LFT Vent/LFT Atrl Angio Completed 08/24/2006 66552 Inj Proc LFT Vent/LFT Atrl Angio Completed 08/24/2006 52543 Coronary Angiography Completed 08/24/2006 32865 S/I/R Inj Proc Vent And Or Atrial Completed 08/24/2006 87123 S/I/R Inj Proc Vent And Or Atrial Completed 08/24/2006 56531 Selective Coronary Angioplasty Completed 08/10/2006 44125 Stress Test Completed 08/10/2006 76250 Stress Test Completed 08/10/2006 52198 Echocardiogram Completed 08/10/2006 56653 Echocardiogram Completed 08/10/2006 08310 Pulse Doppler & Continuous Wave Completed 08/10/2006 60442 Color Doppler Completed 08/10/2006 92732 Color Doppler Completed 08/10/2006 85896 ECHO/Stress Completed 07/27/2006 87299 EKG Tracing & Interpretation Completed 07/27/2006 80863 EKG Tracing & Interpretation Completed 10/27/2005 77462 Color Flow Doppler/Interp & Reprt Completed 10/27/2005 18894 Pulse Wave/Continuous-Interp.RPT Completed 10/27/2005 91152 Pulse Wave/Continuous-Interp.RPT Completed 10/27/2005 24022 Echocardiogram Completed 10/20/2005 39962 Stress Test Completed 10/20/2005 41700 ECHO/Stress Completed 10/20/2005 79697 ECHO/Stress Completed 07/14/2005 97208 EKG Tracing & Interpretation Completed 10/16/2003 28580 Color Doppler Completed 10/16/2003 81928 Pulse Doppler & Continuous Wave Completed 10/16/2003 76508 Echocardiogram Completed 10/09/2003 93654 ECHO/Stress Completed 10/09/2003 23422 Event Monitor/Phys Review/Interp. Completed 10/09/2003 70460 Cardiac Event Monitor/Recording Completed 10/09/2003 73992 Stress Test Completed Encounters Type Date Location Provider CPT E/M Dx Office Visit 02/26/2018 1:00p [facility] Chi Lnogo M.D. 87945 I10 I49.5 Z95.0 R53.83 I34.0 Office Visit 12/31/2017 11:40a [facility] Chi Longo M.D. 07349 I10 R42 E78.00 I49.5 Office Visit 08/30/2017 10:30a [facility] Cata Armstrong N.PKapil 53194 I10 R42 E78.00 Office Visit 08/06/2017 11:40a [facility] Chi Longo M.D. 08928 I49.5 I10 R42 E78.00 Office Visit 06/15/2017 4:15p [facility] Ozzy Shepherd, 51372 I49.5 Vipul Bae I49.3 I10 Office Visit 06/07/2017 2:30p [facility] NEL Hyman 55460 I10 R42 I49.5 R53.1 R00.2 Office Visit 05/22/2017 9:20a [facility] Chi Longo M.D. 22870 I47.9 I34.0 I10 E78.00 I49.5 R42 Office Visit 04/27/2016 2:40p [facility] Chi Longo 54993 I10 Vipul Bae E78.00 I34.0 I47.9 Office Visit 12/06/2015 9:30a [facility] NEL Mari 61480FHC I10 I49.3 E78.0 Office Visit 11/03/2015 1:00p [facility] Chi Longo M.D. 73582 I10 I34.0 I47.9 Office Visit 09/03/2015 1:30p [facility] NEL Mari 14531RYS I10 I34.0 I49.3 R09.02 Office Visit 08/17/2015 11:00a [facility] Chi Longo 51206 R06.02 Kathia I10 I34.0 Office Visit 06/28/2015 9:00a [facility] NEL Mari 36032 E78.0 I10 I34.0 R06.02 I47.2 Office Visit 05/04/2015 3:30p [facility] Chi Longo M.D. 96815 I34.0 I10 E78.0 R00.1 R06.00 Office Visit 08/03/2014 10:20a [facility] Chi Longo M.D. 43784 424.0 401.1 272.0 427.0 Office Visit 12/10/2013 2:20p [facility] Chi Longo M.D. 74630 401.1 424.0 272.0 427.0 723.1 Office Visit 03/12/2013 9:40a [facility] Chi Longo M.D. 16222 424.0 401.1 272.0 278.00 Office Visit 08/08/2012 9:40a [facility] Chi Longo M.D. 86360 424.0 427.0 401.1 Office Visit 05/03/2012 10:30a [facility] Chi Longo M.D. 47625 424.0 786.09 427.0 401.1 272.0 Office Visit 03/27/2012 10:00a [facility] Chi Longo M.D. 14831 424.0 401.1 427.0 786.09 785.1 Office Visit 10/03/2011 9:00a [facility] Savita Guerra, N.P. 74597 401.1 272.0 424.0 Office Visit 09/27/2011 10:30a [facility] Savita Guerra, N.P. 88946 401.1 427.0 Office Visit 09/07/2011 9:00a [facility] Chi Longo M.D. 28550 401.1 427.0 272.0 424.0 Office Visit 06/29/2010 2:20p [facility] Chi Longo M.D. 25761 401.1 427.0 272.0 Office Visit 11/18/2009 10:00a DO Not Use [employer] [facility], 16704 401.1 [facility] Kathia 427.0 272.0 424.0 278.01 427.1 416.8 424.1 794.31 401.0 785.2 Office Visit 10/26/2009 2:00p [facility] Chi Longo M.D. 15334 401.1 427.0 272.0 Office Visit 01/14/2009 9:20a [facility] Chi Longo M.D. 70922 401.1 427.0 424.0 272.0 Office Visit 05/13/2008 3:20p [facility] Chi Longo M.D. 99970 401.1 427.0 424.0 278.01 Office Visit 09/26/2007 9:40a [facility] Chi Longo M.D. 83386 401.1 427.0 427.1 Office Visit 07/12/2007 8:40a [facility] Chi Longo M.D. 54133 401.1 424.0 427.0 Office Visit 04/18/2007 9:40a [facility] Chi Longo M.D. 95953 272.0 401.1 424.0 Office Visit 10/12/2006 10:20a [facility] Chi Longo M.D. 76281 424.0 401.1 272.0 Office Visit 08/30/2006 3:00p [facility] Mikitaybeh S. Kalina, 06015 427.1 MKapilDKapil 424.0 416.8 Office Visit 08/24/2006 9:00a [facility] Qutaybeh S. Kalina, 77031 427.1 MJuancho 424.0 424.1 Office Visit 07/27/2006 2:40p [facility] Chi Longo M.D. 61785 427.1 424.0 272.0 Office Visit 07/14/2005 3:00p [facility] Chi Longo M.D. 18759 427.0 424.0 401.0 Office Visit 10/09/2003 10:00a [facility] Chi Longo M.D. 84918 785.1 785.2 401.9 272.0 493.90 780.57 Plan of Care 04/09/2018 - Cata Armstrong N.P.I34.0 Nonrheumatic mitral (valve) [id number] Essential (primary) hypertensionComments:BP controlled.Follow up:OV 10/2018 JFMZ95.0 Presence of cardiac vjettkhfpW23.5 Sick sinus syndrome
[2018-05-04 09:49] VITALS: BP 132/78
--- NOTE | 2018-05-04 10:01 | UC ---
Abdominal Pain Male HPI - HPI Summary HPI Summary: 78 yo with PMH of BPH, asthma, HLD and HTN who states ate a raw hamburger a few days ago then a few hours after began having stomach cramps and diarrhea. Diarrhea lasted for a few days with cramping, continues to have low abdominal cramps but no more diarrhea. Denies nausea, vomiting, chills fever or flank pain , denies urinary symptoms or scrotal pain - History of Current Complaint Chief Complaint: UCGU Stated Complaint: STOMACH ACHE Time Seen by Provider: 05/04/18 09:47 Hx Obtained From: Patient Onset/Duration: Sudden Onset, Lasting Days Severity Initially: Moderate Severity Currently: Mild Pain Intensity: 0 Location: Diffuse Radiates: No Aggravating Factor(s): Food Alleviating Factor(s): Spontaneous Resolution - Risk Factors Testicular Torsion: Negative Cardiac Risk Factors: Negative - Allergies/Home Medications Allergies/Adverse Reactions: Allergies Allergy/AdvReac Type Severity Reaction Status Date / Time atorvastatin Allergy Unknown Verified 05/04/18 09:45 Reaction Details PMH/Surg Hx/FS Hx/Imm Hx Endocrine History: Dyslipidemia Cardiovascular History: Hypertension Respiratory History: Asthma - Surgical History Surgical History: Yes Surgery Procedure, Year, and Place: PACEMAKER 2018 - Family History Known Family History: Positive: Cardiac Disease - Social History Alcohol Use: None Substance Use Type: None Smoking Status (MU): Former Smoker Have You Smoked in the Last Year: No When Did the Patient Quit Smoking/Using Tobacco: 1968 Review of Systems All Other Systems Reviewed And Are Negative: Yes Gastrointestinal: Positive: Abdominal Pain, Diarrhea Physical Exam Triage Information Reviewed: Yes Appearance: Well-Appearing, No Pain Distress, Obese Vital Signs: Initial Vital Signs Temp 97.8 F 05/04/18 09:43 Pulse 81 05/04/18 09:43 Resp 15 05/04/18 09:43 BP 132/78 05/04/18 09:43 Pulse Ox 98 05/04/18 09:43 Vital Signs Reviewed: Yes Eye Exam: Normal Eyes: Positive: Conjunctiva Clear ENT: Positive: Hearing grossly normal, Pharynx normal, Uvula midline Neck: Positive: Supple, Nontender, No Lymphadenopathy Respiratory: Positive: Chest non-tender, Lungs clear, Normal breath sounds, No respiratory distress Cardiovascular: Positive: RRR, No Murmur, Pulses Normal, Brisk Capillary Refill Abdomen Description: Positive: Nontender, No Organomegaly, Soft Bowel Sounds: Positive: Present Musculoskeletal: Positive: Strength Intact, ROM Intact, No Edema Abd Pain Male Course/Dx - Course Course Of Treatment: Patient had diarrhea and abdominal cramps shortly after he ate a raw hamburger, and diarrhea has resolved. Consistent with food poisoning, will start symptomatic treatment for abdominal cramping and recommended use of probiotics. f/u with PCP in 1-2 weeks. - Differential Dx/Clinical Impression Provider Diagnoses: food poisoning Discharge - Sign-Out/Discharge Documenting (check all that apply): Patient Departure All imaging exams completed and their final reports reviewed: No Studies - Discharge Plan Condition: Stable Disposition: HOME Patient Education Materials: Gastroenteritis (ED), Hyoscyamine (By mouth) Referrals: Paul Zavala MD [Primary Care Provider] - - Billing Disposition and Condition Condition: STABLE Disposition: Home
== END 2018-05-04 10:18 | disposition home or self-care (01) ==
LOC: UCCORT 09:15
DX: T62.91XA Toxic effect of unspecified noxious substance eaten as food, accidental (unintentional), initial encounter (principal); Y92.9 Unspecified place or not applicable; I10 Essential (primary) hypertension; Z87.891 Personal history of nicotine dependence
CPT/HCPCS: 99212; G0463

== ENCOUNTER 2018-06-27 08:49 | Emergency (ER) | payer MEDICARE ==
--- NOTE | 2018-06-27 10:07 | UC ---
Abdominal Pain Male HPI - HPI Summary HPI Summary: Started w/ nausea, watery diarrhea x2 days. NO sick contacts. Has had one normal BM. denies vomiting, fever, blood in urine or stool, dizziness. does not have abd pain and was burping. - History of Current Complaint Chief Complaint: UCGI Stated Complaint: NAUSEA Time Seen by Provider: 06/27/18 10:04 Hx Obtained From: Patient - Allergies/Home Medications Allergies/Adverse Reactions: Allergies Allergy/AdvReac Type Severity Reaction Status Date / Time atorvastatin Allergy Unknown Verified 06/27/18 10:07 Reaction Details Home Medications: Home Medications dilTIAZem HCl [Cartia Xt] 1 tab PO SEE INSTRUCTIONS 06/27/18 [History Confirmed 06/27/18] PMH/Surg Hx/FS Hx/Imm Hx Cardiovascular History: Cardiac Disease, Hypertension - Surgical History Surgical History: Yes Surgery Procedure, Year, and Place: PACEMAKER 2017 - Family History Known Family History: Positive: Cardiac Disease - Social History Alcohol Use: None Substance Use Type: None Smoking Status (MU): Former Smoker Have You Smoked in the Last Year: No When Did the Patient Quit Smoking/Using Tobacco: 1968 Review of Systems All Other Systems Reviewed And Are Negative: Yes Constitutional: Positive: Negative Skin: Positive: Negative Cardiovascular: Positive: Negative Gastrointestinal: Positive: Diarrhea, Nausea. Negative: Abdominal Pain, Vomiting Genitourinary: Negative: Dysuria Neurological: Positive: Other - dizziness denies. Negative: Headache Physical Exam Triage Information Reviewed: Yes Appearance: Well-Appearing Vital Signs Reviewed: Yes Neck: Positive: Supple, No Lymphadenopathy Respiratory Exam: Normal Cardiovascular Exam: Normal Abdomen Description: Positive: Nontender, Soft. Negative: CVA Tenderness (R), CVA Tenderness (L), Distended, Guarding Neurological: Positive: Alert Skin: Negative: Rashes Abd Pain Male Course/Dx - Course Course Of Treatment: LIkely viral gastroenteritis but ulcer cannot be ruled out. Exam unremarkable. Vitals good/stable. NO neuro deficits and UA NL. Will get stool studies but he should f/u w/ pcp w/in 1-2 days. - Differential Dx/Clinical Impression Provider Diagnosis: Gastroenteritis Discharge - Sign-Out/Discharge Documenting (check all that apply): Patient Departure All imaging exams completed and their final reports reviewed: No Studies - Discharge Plan Condition: Good Disposition: HOME Patient Education Materials: Gastroenteritis (ED) Referrals: Paul Zavala MD [Primary Care Provider] - Additional Instructions: Please follow up with your pcp for your symptoms as they may consider further testing that we are unable to do here at the Urgent Care. - Billing Disposition and Condition Condition: GOOD Disposition: Home
[2018-06-27 10:16] VITALS: BP 146/75
== END 2018-06-27 11:43 | disposition home or self-care (01) ==
LOC: UCCORT 08:49
DX: K52.9 Noninfective gastroenteritis and colitis, unspecified (principal); I10 Essential (primary) hypertension; I51.9 Heart disease, unspecified; Z95.0 Presence of cardiac pacemaker; Z87.891 Personal history of nicotine dependence; Z88.8 Allergy status to other drugs, medicaments and biological substances
CPT/HCPCS: 81003; 99211; G0463

== ENCOUNTER 2024-04-25 16:43 | Observation (INO) ==
[2024-04-25 17:24] LABS: ABS Basophils 0.1 10^3/uL (0.0-0.1); ABS Eosinophils 0.3 10^3/uL (0.0-0.5); ABS Lymphocytes 1.9 10^3/uL (1.0-4.8); ABS Neutrophils 3.7 10^3/uL (1.5-7.6); Eosinophil % 4.6 %; Hematocrit 42.4 % (38-53); Hemoglobin 14.2 g/dL (13.2-16.3); Lymphocyte % 27.3 %; Mean Corpuscular Hgb Conc 33.5 g/dL (31-36); Mean Corpuscular Volume 89.5 fL (80-97); Mean Platelet Volume 7.5 fL (7.5-11.2); Nucleated Red Blood Cells % 0.1 %/100WBC (0.0-0.8); Platelet Count 295 10^3/uL (150-450); Red Blood Count 4.74 10^6/uL (4.06-5.63); Red Cell Distribution Width 13.6 % (12-17); White Blood Count 7.1 10^3/uL (3.6-10.2)
[2024-04-25 17:30] LABS: INR 1.18 (0.85-1.14)
[2024-04-25 17:56] LABS: Albumin 4.1 g/dL (3.2-5.2); Albumin/Globulin Ratio 1.6 (1-3); Calcium 9.1 mg/dL (8.6-10.3); Creatinine, Serum 1.19 mg/dL (0.67-1.17); Globulin 2.5 g/dL (2-4); Potassium 4.7 mmol/L (3.5-5.0); Total Bilirubin 0.4 mg/dL (0.2-1.0); Total Protein 6.6 g/dL (6.4-8.9); eGFR CKD-EPI 60.2 (>60)
[2024-04-25 18:45] LABS: High Sensitivity Troponin 1 Hr 5 pg/mL (<20)
[2024-04-25 19:39] LABS: Magnesium 2.1 mg/dL (1.9-2.7)
[2024-04-25] MEDS ORDERED: Sulfur Hexaflouride MICROSPHR 25 MG VIAL IV PRN (21:55)
[2024-04-26] MEDS: Iohexol 350 (CONTRAST) 500 ML MDV IV ONE (00:02)
[2024-04-26 06:27] LABS: ABS Basophils 0.1 10^3/uL (0.0-0.1); ABS Eosinophils 0.3 10^3/uL (0.0-0.5); ABS Lymphocytes 1.5 10^3/uL (1.0-4.8); ABS Monocytes 0.8 10^3/uL (0.0-1.1); ABS Neutrophils 3.5 10^3/uL (1.5-7.6); Eosinophil % 4.4 %; Hematocrit 40.8 % (38-53); Hemoglobin 13.9 g/dL (13.2-16.3); Lymphocyte % 24.9 %; Mean Corpuscular Hemoglobin 30.5 pg (27-33); Mean Corpuscular Hgb Conc 34.1 g/dL (31-36); Mean Corpuscular Volume 89.4 fL (80-97); Mean Platelet Volume 7.6 fL (7.5-11.2); Nucleated Red Blood Cells % 0.1 %/100WBC (0.0-0.8); Platelet Count 271 10^3/uL (150-450); Red Blood Count 4.56 10^6/uL (4.06-5.63); Red Cell Distribution Width 13.4 % (12-17); White Blood Count 6.2 10^3/uL (3.6-10.2)
[2024-04-26 07:05] LABS: Calcium 8.8 mg/dL (8.6-10.3); Creatinine, Serum 0.96 mg/dL (0.67-1.17); Potassium 4.6 mmol/L (3.5-5.0); eGFR CKD-EPI 77.9 (>60)
[2024-04-27 14:49] VITALS: BP 135/78
== END 2024-04-27 16:53 | disposition home or self-care (01) ==
LOC: ED 16:43 → EDHOLD 16:43 → SUATTDRO 19:25 → MEDTELE 21:46
PROVIDERS: ADMIT Internal Medicine; ATTEND Internal Medicine